=== PATIENT | female | born 1990 | race Caucasian/White ===

== ENCOUNTER → 2019-07-20 09:30 | Outpatient (BNVA) | payer MEDICAID, SELFPAY | PROVIDERS: Family Provider Obstetrics & Gynecology; Visit Provider Nurse Practitioner Women's Health | DX: Z34.90 Encounter for supervision of normal pregnancy, unspecified, unspecified trimester (principal) | CPT/HCPCS: 84315 ==

== ENCOUNTER → 2019-08-01 10:55 | Outpatient (BNVA) | payer MEDICAID, SELFPAY | PROVIDERS: Family Provider Obstetrics & Gynecology; Visit Provider Obstetrics & Gynecology | DX: Z01.89 Encounter for other specified special examinations (principal) | CPT/HCPCS: 84315 ==

== ENCOUNTER → 2019-08-15 09:00 | Outpatient (BNVA) | payer MEDICAID, SELFPAY | PROVIDERS: Family Provider Obstetrics & Gynecology; Visit Provider Obstetrics & Gynecology Female Pelvic Medicine and Reconstructive Surgery | DX: O16.3 Unspecified maternal hypertension, third trimester (principal) | CPT/HCPCS: 80053; 82570; 84156; 84315; 84550; 85025; 87081 ==

== ENCOUNTER → 2019-08-18 14:16 | Outpatient (BNVA) | payer MEDICAID, SELFPAY | PROVIDERS: Family Provider Obstetrics & Gynecology; Visit Provider Obstetrics & Gynecology | DX: Z01.89 Encounter for other specified special examinations (principal) | CPT/HCPCS: 84315 ==

== ENCOUNTER → 2019-08-22 09:30 | Outpatient (BNVA) | payer MEDICAID, SELFPAY | PROVIDERS: Family Provider Obstetrics & Gynecology; Visit Provider Obstetrics & Gynecology Female Pelvic Medicine and Reconstructive Surgery | DX: Z01.89 Encounter for other specified special examinations (principal) | CPT/HCPCS: 84315 ==

== ENCOUNTER → 2019-08-25 15:06 | Outpatient (BNVA) | payer MEDICAID, SELFPAY | PROVIDERS: Family Provider Obstetrics & Gynecology; Visit Provider Obstetrics & Gynecology Female Pelvic Medicine and Reconstructive Surgery | DX: O16.3 Unspecified maternal hypertension, third trimester (principal); Z3A.31 31 weeks gestation of pregnancy | CPT/HCPCS: 82570; 82575; 84156 ==

== ENCOUNTER → 2019-08-31 09:40 | Outpatient (BNVA) | payer MEDICAID, SELFPAY | PROVIDERS: Family Provider Obstetrics & Gynecology; Visit Provider Nurse Practitioner Women's Health | DX: Z34.93 Encounter for supervision of normal pregnancy, unspecified, third trimester (principal); Z36.9 Encounter for antenatal screening, unspecified; Z3A.36 36 weeks gestation of pregnancy | CPT/HCPCS: 76816; 84315 ==

== ENCOUNTER 2019-09-07 10:58 | Inpatient (IN) | payer MEDICAID, SELFPAY ==
[2019-09-07] VITALS (143 sets, daily range): BP systolic 0–194; BP diastolic 0–105; PULSE 80–146; TEMP 36.7–36.9; O2SAT 81–100; BMI 40.0
[2019-09-07 12:11] LABS: Basophils % 0.1 %; Eosinophils # 0.1 10^3/uL (0.0-0.8); Eosinophils % 0.5 %; Hematocrit 35.5 % (37.0-47.0); Hemoglobin 11.7 g/dL (11.5-15.3); Lymphocytes # 2.3 10^3/uL (0.8-4.8); Lymphocytes % 16.5 %; Mean Corpuscular Hemoglobin 26.8 pg (28.0-34.0); Mean Corpuscular Volume 81.2 fL (81-99); Mean Platelet Volume 9.9 fL (7.4-10.4); Monocytes # 0.5 10^3/uL (0.2-0.9); Monocytes % 3.5 %; Neutrophils % 78.9 %; Nucleated Red Blood Cells % 0 %; Platelet Count 349 10^3/cmm (130-400); Red Blood Count 4.37 10^6/uL (4.1-5.3); Red Cell Distribution Width 14.1 % (12.1-15.1); White Blood Count 13.9 10^3/uL (4.0-10.0)
[2019-09-07] MEDS: miSOPROStol 100 mcg tablet 25 MCG VAGINAL (12:14)
[2019-09-07] MEDS: lactated ringers 1,000 ML 999 ML IV ×2 (12:14→18:27)
[2019-09-07 12:29] LABS: Alanine Aminotransferase < 5 U/L (0-33); Albumin Level 3.5 g/dL (3.5-5.2); Alkaline Phosphatase 156 IU/L (35-105); Anion Gap 14.1 (5-19); Aspartate Amino Transferase 12 U/L (0-32); Blood Urea Nitrogen 6 mg/dL (6-20); Calcium 9.6 mg/dL (8.5-10.5); Carbon Dioxide 22 mmol/L (22-29); Chloride 101 mmol/L (98-107); Glomerular Filtration Rate 119.9 mL/min (90-130); Glucose 99 mg/dL (65-115); Potassium 4.1 mmol/L (3.5-5.1); Sodium 133 mmol/L (136-145); Total Bilirubin 0.3 mg/dL (0.15-1.2); Total Protein 7.5 g/dL (6.6-8.7)
[2019-09-07] MEDS: hyDROXYzine 25 mg Capsule 50 MG PO (13:44)
[2019-09-07 14:31] LABS: Bilirubin Urine 1+ (NEGATIVE); Blood Urine Neg (Negative); Glucose Urine UA Norm (Normal); Ketones Urine 1+ (Negative); Nitrate Urine Negative (Negative); Protein Urine Neg (Negative); Urine Appearance Hazy (CLEAR); Urine Color Dark Yellow (Yellow); Urobilinogen Urine 1 mg/dL (Negative); pH Urine 6 (5-7)
[2019-09-07 14:32] LABS: Bacteria Urine TRACE; Leukocyte Esterase Urine Negative (Negative); Mucus Urine 1+; Squamous Epithelial Cell Urine 0-4 (0-5); WBC Urine 0-4 /hpf (0-5)
[2019-09-07] MEDS: acetaminophen 325 mg Tablet 650 MG PO (15:17)
[2019-09-07] MEDS: labetalol 5 mg/mL SDV 20mL 10 MG IVP (15:18)
[2019-09-07 15:29] LABS: Urine Creatinine 227 mg/dL (28-217)
[2019-09-07 15:40] LABS: UPRO/UCREAT Ratio 0.11 mg/mg CR; Urine Protein Random 25 mg/dL
--- NOTE | 2019-09-07 18:01 | PM.OBGYPN ---
ADVANCED SOLUTIONS ARCHITECT Subjective Subjective: Interval history: This 4 para 3 was admitted at 39+[address] Maya, for induction of labor with a diagnosis of gestational hypertension. Patient has been followed closely in the outpatient setting for increased blood pressure in the 140s to 150s over 90s serial labs have been unremarkable for preeclampsia serially urine protein/creatinine ratios have been normal. Today in the office her cervix was described as 80% 3 cm vertex she was admitted for induction. Since arriving on labor and delivery she has received Hunter possible 25 mcg per vagina with minimal effect. Has had a category 1 tracing. She has had blood pressures in the 150s to 160s over 90s to low 100s and has been given labetalol 10 mg now with blood pressures 130s to 140s systolic she has also developed headache which was not relieved by Tylenol which was not present earlier and now has 3+ patellar reflexes which are changed from before. My concern at this time is that she may be developing cerebral edema even though she does not classically fit the preeclamptic profile have discussed with patient that my recommendation is is that she go on magnesium sulfate for seizure prophylaxis. We will start IV Pitocin augmentation and membranes have been ruptured clear fluid. Medications: Reviewed: Yes Medication Review Details: IV Pitocin augmentation Magnesium sulfate Labetalol 10 mg Labor: Station: -2 Amniotic Membrane Status: Ruptured (At 1800 hrs. clear fluid) Vitals/I&O/Wt Last Vital Signs Temp 98.1 F 09/07/19 12:24 Pulse 114 H 09/07/19 17:58 BP 149/65 09/07/19 17:58 Weight last 48 hrs Weight 102.512 kg Physical Exam Narrative: EXAM NARRATIVE: Alert and oriented no acute distress patient laying in bed Monitor category 1 irregular uterine contractions noted. Abdomen is soft nontender Cervix 80% 3 cm vertex -3/5. AROM clear fluid Pelvis is adequate Extremities no significant edema patella DTRs are 3 oh/4 with clonus (change from previous) Data : 09/07/19 11:55 09/07/19 11:55 A&P Assessment and plan (1) Preeclampsia: I am concerned that with a blood pressure approaching and going to severe range and without development of headache and hyperreflexia that she is developing cerebral edema and probable preeclampsia. This is been explained to patient. At this time I do recommend starting magnesium sulfate for seizure prophylaxis we will also start IV Pitocin for augmentation. Amniotomy performed fluid is clear. Status: Acute Code(s): O14.90 - Unspecified pre-eclampsia, unspecified trimester Attestations Medical Necessity Statement*: Term IUP preeclampsia Time Spent in Patient Care: 16 - 35 minutes 30 minutes spent in patient care greater than 50% spent [id number] counseling for development of preeclampsia or need for magnesium sulfate prophylaxis for seizures. Coding Level of Care Code Acute Machine Operations Supervisor for Chg Fwd History Expanded Problem Focused Exam Expanded Problem Focused Medical Decision Making Moderate Complexity Diagnoses Preeclampsia O14.90 Time Spent (min) 30 Comment Greater than 50% of time spent with counseling patient for need for seizure prophylaxis
[2019-09-07] MEDS: dextrose 5%-lactated ringers 1,000 ML 125 ML IV (18:18)
[2019-09-07] MEDS: magnesium sulfate premix 4 GM/100 ML PREMIX IV (18:34)
[2019-09-07] MEDS: magnesium sulfate premix 20 GM/500 ML BAG IV (19:09)
[2019-09-07] MEDS: lactated ringers 1,000 ML 125 ML IV (19:33)
--- NOTE | 2019-09-07 19:41 | ANES.PREANE2 ---
Pre-Anesthetic Assessment Pre-Anesthetic Assessment: Height/Weight: Height 1.6 m Weight 102.512 kg Temp Pulse BP Pulse Ox 98.1 F 116 H 169/86 98 09/07/19 12:24 09/07/19 19:38 09/07/19 19:38 09/07/19 19:36 Preop Diagnosis: labor pains Proposed Procedure: epidural Familial anesthetic complications: none Social: Social History: No alcohol and No tobacco Exam: Pre-Anes Outpt Exam: alert, oriented x 3, clear to auscultation bilaterally and regular rate & rhythm Airway: Submandibular: WNL Cervical ROM: WNL MP: 2 Dentition: Full History/ROS: No significant complaints Pulmonary: Pulmonary: None reported CV/HEM: CV/HEM: HTN (preeclampsia) : : None reported Hepatic: Hepatic: None reported GI: GI: None reported Metabolic: Metabolic: None reported Musc/skel: Musc/skel: None reported Neuropsych: Neuropsych: Anxiety Anesthetic Plan: ASA status: 2 Anesthesia: Regional (specify below) Other: epidural Risk of > 500 ml blood loss (7ml/kg in children): No Meds/Allergies Current Medications: Current Medications Generic Name Dose Route Start Last Admin Trade Name Freq PRN Reason Stop Dose Admin Acetaminophen 650 mg 09/07/19 11:27 09/07/19 15:17 Tylenol PO 650 mg Q6H PRN Administration Mild pain or temp > 100.4 Hydroxyzine Pamoat e 50 mg 09/07/19 11:27 09/07/19 13:44 Vistaril PO 50 mg QID PRN Administration sleep, agitation or itching Lactated Ringer's 1,000 mls @ 999 m ls/hr 09/07/19 11:27 09/07/19 13:05 Lactated Ringers IV Infused .Q1H1M PRN Infusion Per L&D Rescitati on Protocol Dextrose/Lactated Ringer's 1,000 mls @ 125 m ls/hr 09/07/19 17:30 09/07/19 18:30 Dextrose 5%-Lact ated Ringers IV 0 mls/hr .Q8H BEATRIS Infusion Magnesium Sulfate 20 gm in 500 mls @ 50 mls/hr 09/07/19 17:30 09/07/19 19:09 Magnesium Sulfat e Premix IV 50 mls/hr .Q10H BEATRIS Administration Lactated Ringer's 1,000 mls @ 125 m ls/hr 09/07/19 19:13 09/07/19 19:34 Lactated Ringers IV 75 mls/hr .Q8H PRN Infusion ANESTHESIA PFSH Anesthesia PFSH: Medical History (Updated 09/07/19 @ 18:05 by Jose Roberto Hernandez DO) Patient denies medical problems Denies diabetes, asthma, seizures, DVT/PE, thyroid problems, genital herpes, no hx of HSV for partner. PCP: None Surgical History (Updated 08/23/19 @ 14:48 by Kell Chase, FRANKIE) No history of previous surgery Family History (Updated 08/23/19 @ 14:51 by Kell Chase RN) Father Hypertension Son Thyroid disease Family/Other Cancer MATERNAL GREAT AUNT ---- BREAST CANCER Patient denies medical problems Denies breast, cervical, uterine, ovarian, colon cancer, DVT/PE. 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 Female Reproductive History: : 1 Data Anesthesia CBC & Chem 7: 09/07/19 11:55 09/07/19 11:55 Other Labs: Laboratory Results - last 48 hr 09/07/19 09/07/19 09/07/19 11:55 11:55 13:05 WBC 13.9 H RBC 4.37 Hgb 11.7 Hct 35.5 L MCV 81.2 MCH 26.8 L MCHC 33.0 RDW 14.1 Plt Count 349 MPV 9.9 Neut % (Auto) 78.9 Lymph % (Auto) 16.5 [place] % (Auto) 3.5 Eos % (Auto) 0.5 Baso % (Auto) 0.1 Neut # (Auto) 11.0 H Lymph # (Auto) 2.3 [place] # (Auto) 0.5 Eos # (Auto) 0.1 Baso # (Auto) 0.0 Nucleated RBC % (auto) 0 Nucleated RBCs # 0.0 Sodium 133 L Potassium 4.1 Chloride 101 Carbon Dioxide 22 Anion Gap 14.1 BUN 6 Creatinine 0.6 GFR Calculation 119.9 Glucose 99 Uric Acid 6.0 H Calcium 9.6 Total Bilirubin 0.3 AST 12 ALT < 5 Alkaline Phosphatase 156 H Total Protein 7.5 Albumin 3.5 Globulin 4.0 Urine Color Dark yellow Urine Appearance Hazy A Urine pH 6 Ur Specific [place] 1.020 Urine Protein Neg Urine Glucose (UA) Norm Urine Ketones 1+ H Urine Blood Neg Urine Nitrate Negative Urine Bilirubin 1+ H Urine Urobilinogen 1 H Ur Leukocyte Esterase Negative Urine RBC None Urine WBC 0-4 H Ur Squamous Epith Cells 0-4 H Urine Bacteria Trace Urine Mucus 1+ U Random Total Protein Urine Creatinine Protein/Creatinin Ratio 09/07/19 13:05 WBC RBC Hgb Hct MCV MCH MCHC RDW Plt Count MPV Neut % (Auto) Lymph % (Auto) [place] % (Auto) Eos % (Auto) Baso % (Auto) Neut # (Auto) Lymph # (Auto) [place] # (Auto) Eos # (Auto) Baso # (Auto) Nucleated RBC % (auto) Nucleated RBCs # Sodium Potassium Chloride Carbon Dioxide Anion Gap BUN Creatinine GFR Calculation Glucose Uric Acid Calcium Total Bilirubin AST ALT Alkaline Phosphatase Total Protein Albumin Globulin Urine Color Urine Appearance Urine pH Ur Specific [place] Urine Protein Urine Glucose (UA) Urine Ketones Urine Blood Urine Nitrate Urine Bilirubin Urine Urobilinogen Ur Leukocyte Esterase Urine RBC Urine WBC Ur Squamous Epith Cells Urine Bacteria Urine Mucus U Random Total Protein 25 Urine Creatinine 227 H Protein/Creatinin Ratio 0.11 Cardiac Studies: No Data to Display
--- NOTE | 2019-09-07 20:09 | P.ANES_ITS ---
Anesthesia Procedures Procedure/Date: 09/07/19 Epidural Procedure Narrative: Epidural complete, bolus given, epidural pump initiated with AUTO LEASING MANAGER education given, vitals taken using OBIX system and satisfactory throughout, patient admits to decreased pain, report of procedure to OB RN Epidural: Time Out Performed: Yes Consents Signed: Procedure Consent Consent: requested by attending/covering physician, from patient, risks and benefits reviewed and patient agrees to proceed Lumbar Level: L3-L4 Epidural position: sitting Epidural procedure: sterile prep of area, 1% lidocaine to numb the area (3mL), 18 g needle, negative for paresthesia passed, neg for paresthesia, test dose given, 1.5% xylocaine 1:200k epi (5mL), 0.2% Ropivacaine bolus ml (5mL), placed PCEA, no systemic response, sterile dressing applied, L.U.D. no apparent complications and 0.2% Ropiavacaine @ mls/hr (13mL/HR)
--- NOTE | 2019-09-07 20:45 | ANE.PACU2 ---
 Inpatient post-anesthesia follow up: Airway intact: Yes Vital signs: Temperature 98.1 F Pulse Rate 97 Respiratory Rate Blood Pressure 113/47 Pulse Oximetry 100 Oxygen Delivery Me thod Room Air Oxygen Flow Rate Fraction of Inspir ed Oxygen Hydration adequate: Yes Nausea and vomiting: No Pain level: 2 Mental status: Baseline Additional Comments: Post epidural placment patient had a decrease in Blood pressure, patient was turned on left side, given a 500mL bolus and given 200mcg neosynephrine x 2 doses, and epidural pump reduced to 11mL/HR. Blood pressure stabilized. patient still claims to have reduced pain with contractions
[2019-09-07] MEDS: lactated ringers 1,000 ML 75 ML IV (22:16)
[2019-09-07] MEDS: oxytocin 30 UNIT/500 ML BAG 600 UNIT IV (22:48)
--- NOTE | 2019-09-07 22:58 | PM.DELIVERY ---
 Delivery Note: Date of delivery: September 07, 2019 Pre-delivery diagnoses: Term . Preeclampsia Post-delivery diagnoses: Term delivered. Preeclampsia. Procedure: Spontaneous vaginal delivery Op report anesthesia: Epidural Delivering Physician: Mani Slaughter M.D. Estimated blood loss (mL): 500 Findings: Female , Apgars 9/9, weight 3550 g Pre-Delivery Course: The patient is a 29yo at 39 weeks EGA who has been receiving care from [facility]. The patient was admitted from clinic due to elevated blood pressures for induction. She received misoprostol for cervical ripening, and oxytocin. LMP: 12/04/2018 Estimated date of confinement: 09/10/2019 CC: Onset of labor at term. HPI: Received appropriate care. Daily vitamins since two months prior to conception. labs have all been normal, including negative for HIV. She was found to [positive] for Group B Strep from screening at 36 weeks. She has gained approximately [3] lbs throughout the . She denies a history of HTN during . Glucose tolerance screening for gestational diabetes was negative. Delivery: The patient was noted to be complete and pushing, so was placed in the dorsal lithotomy position, prepped and draped in the usual sterile fashion for a vaginal delivery. Pt. Noted to have epidural anesthesia. At time the patient delivered a Viable At 39 weeks Female weighing 3550 g with scores of 9 and 9 at one and five minutes, respectively. The vertex was delivered spontaneously over Intact perineum. The patient was asked to push and the head delivered spontaneously in the JEFFERSON position, over an intact perineum. A nuchal cord was checked and None noted. The anterior shoulder delivered easily and the posterior shoulder followed. The remainder of the infant was easily delivered and the oropharynx and nasopharynx was bulb suctioned. The was noted to have spontaneous cry and spontaneous movement of all four extremities. The cord was clamped x 2 and cut and noted to have 2 arteries and one vein. The was passed to the Mother's abdomen where Nursing personnel were in attendance. Cord blood sample was then obtained. The placenta delivered intact Spontaneously and the uterus Was explored. 20 units of Pitocin was placed in the IV bag to firm the uterus. Examination of the cervix and vaginal vault did not reveal any lacerations. A vaginal pack was then placed. Examination of the perineum showed No lacerations. The vaginal pack was then removed. The patient tolerated this procedure well, and recovered in L&D with her infant And transferred to the OB dougherty. All sponge and needle counts were correct. A&P Assessment and plan (1) Preeclampsia: Status: Acute Code(s): O14.90 - Unspecified pre-eclampsia, unspecified trimester Coding Level of Care Code Acute Index Clerk for [facility] Fwd Diagnoses Preeclampsia O14.90
[2019-09-08] VITALS (42 sets, daily range): BP systolic 0–154; BP diastolic 0–105; PULSE 65–108; RESP 16–27; TEMP 36.2–36.8; O2SAT 93–100
[2019-09-08 00:22] LABS: Magnesium Level (OB Only) 4.6 mg/dL (5.0-7.5)
[2019-09-08] MEDS: HYDROcodone-acetaminophen 5-325 mg Tablet PO ×2 (02:38→08:34)
[2019-09-08] MEDS: magnesium sulfate premix 20 GM/500 ML BAG IV (05:32)
[2019-09-08] MEDS: docusate sodium 100 mg Capsule PO (08:34)
[2019-09-08] MEDS: prenatal vitamin Capsule 1 CAP PO (08:34)
--- NOTE | 2019-09-08 10:31 | PC.NURSE ---
Spoke with Dr Davis about post tubal ligation and magnesium sulfate therapy. OK from Dr Davis for tubal with magnesium therapy. Called scheduling, pt put on the schedule for 09/08/19 @ 1700
[2019-09-08 11:13] LABS: Hemoglobin 10.4 g/dL (11.5-15.3); Mean Corpuscular HGB Conc 32.5 g/dL (30.0-36.0); Mean Corpuscular Hemoglobin 26.9 pg (28.0-34.0); Mean Corpuscular Volume 82.7 fL (81-99); Mean Platelet Volume 9.7 fL (7.4-10.4); Platelet Count 315 10^3/cmm (130-400); Red Blood Count 3.87 10^6/uL (4.1-5.3); Red Cell Distribution Width 14.1 % (12.1-15.1); White Blood Count 15.6 10^3/uL (4.0-10.0)
--- NOTE | 2019-09-08 15:32 | PC.NURSE ---
abdomen wiped with preop wipes, gown changed. IV patent.
--- NOTE | 2019-09-08 16:01 | PC.NURSE ---
pt off floor with OR staff for tubal ligation
--- NOTE | 2019-09-08 16:03 | ANES.PREANE2 ---
Pre-Anesthetic Assessment Pre-Anesthetic Assessment: Height/Weight: Height 1.6 m Weight 102.512 kg Temp Pulse Resp BP Pulse Ox 97.8 F 96 18 136/85 97 09/08/19 16:01 09/08/19 16:01 09/08/19 16:01 09/08/19 16:01 09/08/19 16:01 Preop Diagnosis: undesired fertility Proposed Procedure: Operation Date: 09/08/19 16:00 Proposed Procedures p Bilateral Tubal Ligation(Not Applicable) - Jose Roberto Hernandez DO Last intake: Intake Last Liquid Date 09/08/19 Last Liquid Time 14:30 Last Solid Date 09/07/19 Last Solid Time 08:00 Exam: Pre-Anes Outpt Exam: alert, oriented x 3, clear to auscultation bilaterally and regular rate & rhythm Airway: Submandibular: WNL Cervical ROM: WNL MP: 1 CV/HEM: Comments: started Mg in labor, proteinuria Anesthetic Plan: ASA status: 2 Anesthesia: General Meds/Allergies Current Medications: Current Medications Generic Name Dose Route Start Last Admin Trade Name Freq PRN Reason Stop Dose Admin Acetaminophen 650 mg 09/07/19 11:27 09/07/19 15:17 Tylenol PO 650 mg Q6H PRN Administration Mild pain or temp > 100.4 Hydrocodone Bitart /Acetaminophen 1 - 2 tab 09/07/19 22:57 09/08/19 08:34 [place] 5-325 Mg PO 1 tab Q6H PRN Administration MODERATE TO SEVER E PAIN Docusate Sodium 100 mg 09/08/19 09:00 09/08/19 08:34 Colace PO 100 mg BID BEATRIS Administration Hydroxyzine Pamoat e 50 mg 09/07/19 11:27 09/07/19 13:44 Vistaril PO 50 mg QID PRN Administration sleep, agitation or itching Oxytocin 30 unit in 500 ml s @ 600 mls/hr 09/07/19 11:27 09/07/19 23:15 Pitocin IV 60 mls/hr .Q50M PRN Titration After delivery of Protocol Lactated Ringer's 1,000 mls @ 999 m ls/hr 09/07/19 11:27 09/07/19 13:05 Lactated Ringers IV Infused .Q1H1M PRN Infusion Per L&D Rescitati on Protocol Ropivacaine 200 mg in 100 mls @ 6 mls/hr 09/07/19 11:45 09/07/19 22:50 Naropin Premix EPIDURAL Infused .[id number] BEATRIS Infusion Dextrose/Lactated Ringer's 1,000 mls @ 125 m ls/hr 09/07/19 17:30 09/08/19 12:52 Dextrose 5%-Lact ated Ringers IV 75 mls/hr .Q8H BEATRIS Infusion Magnesium Sulfate 20 gm in 500 mls @ 50 mls/hr 09/07/19 17:30 09/08/19 12:52 Magnesium Sulfat e Premix IV 50 mls/hr .Q10H BEATRIS Infusion Lactated Ringer's 1,000 mls @ 125 m ls/hr 09/07/19 19:13 09/08/19 12:53 Lactated Ringers IV Infused .Q8H PRN Infusion ANESTHESIA Ibuprofen 800 mg 09/08/19 09:00 09/08/19 08:34 Motrin PO 800 mg TID BEATRIS Administration Additional Medication Information: IV Pitocin augmentation Magnesium sulfate Labetalol 10 mg PFSH Anesthesia PFSH: Medical History (Updated 09/07/19 @ 18:05 by Jose Roberto Hernandez DO) Patient denies medical problems Denies diabetes, asthma, seizures, DVT/PE, thyroid problems, genital herpes, no hx of HSV for partner. PCP: None Surgical History (Updated 08/23/19 @ 14:48 by Kell Chase RN) No history of previous surgery Family History (Updated 08/23/19 @ 14:51 by Kell Chase RN) Father Hypertension Son Thyroid disease Family/Other Cancer MATERNAL GREAT AUNT ---- BREAST CANCER Patient denies medical problems Denies breast, cervical, uterine, ovarian, colon cancer, DVT/PE. 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 Female Reproductive History: : 1 Data Anesthesia CBC & Chem 7: 09/08/19 11:01 09/07/19 11:55 Other Labs: Laboratory Results - last 48 hr 09/07/19 09/07/19 09/07/19 11:55 11:55 11:55 WBC 13.9 H RBC 4.37 Hgb 11.7 Hct 35.5 L MCV 81.2 MCH 26.8 L MCHC 33.0 RDW 14.1 Plt Count 349 MPV 9.9 Neut % (Auto) 78.9 Lymph % (Auto) 16.5 [place] % (Auto) 3.5 Eos % (Auto) 0.5 Baso % (Auto) 0.1 Neut # (Auto) 11.0 H Lymph # (Auto) 2.3 [place] # (Auto) 0.5 Eos # (Auto) 0.1 Baso # (Auto) 0.0 Nucleated RBC % (auto) 0 Nucleated RBCs # 0.0 Sodium 133 L Potassium 4.1 Chloride 101 Carbon Dioxide 22 Anion Gap 14.1 BUN 6 Creatinine 0.6 GFR Calculation 119.9 Glucose 99 Uric Acid 6.0 H Calcium 9.6 Magnesium Total Bilirubin 0.3 AST 12 ALT < 5 Alkaline Phosphatase 156 H Total Protein 7.5 Albumin 3.5 Globulin 4.0 Urine Color Urine Appearance Urine pH Ur Specific [place] Urine Protein Urine Glucose (UA) Urine Ketones Urine Blood Urine Nitrate Urine Bilirubin Urine Urobilinogen Ur Leukocyte Esterase Urine RBC Urine WBC Ur Squamous Epith Cells Urine Bacteria Urine Mucus U Random Total Protein Urine Creatinine Protein/Creatinin Ratio Blood Type O Negative Rho(D) Type Negaive Antibody Screen Negative Screen 09/07/19 09/07/19 09/07/19 13:05 13:05 23:38 WBC RBC Hgb Hct MCV MCH MCHC RDW Plt Count MPV Neut % (Auto) Lymph % (Auto) [place] % (Auto) Eos % (Auto) Baso % (Auto) Neut # (Auto) Lymph # (Auto) [place] # (Auto) Eos # (Auto) Baso # (Auto) Nucleated RBC % (auto) Nucleated RBCs # Sodium Potassium Chloride Carbon Dioxide Anion Gap BUN Creatinine GFR Calculation Glucose Uric Acid Calcium Magnesium 4.6 L* Total Bilirubin AST ALT Alkaline Phosphatase Total Protein Albumin Globulin Urine Color Dark yellow Urine Appearance Hazy A Urine pH 6 Ur Specific [place] 1.020 Urine Protein Neg Urine Glucose (UA) Norm Urine Ketones 1+ H Urine Blood Neg Urine Nitrate Negative Urine Bilirubin 1+ H Urine Urobilinogen 1 H Ur Leukocyte Esterase Negative Urine RBC None Urine WBC 0-4 H Ur Squamous Epith Cells 0-4 H Urine Bacteria Trace Urine Mucus 1+ U Random Total Protein 25 Urine Creatinine 227 H Protein/Creatinin Ratio 0.11 Blood Type Rho(D) Type Antibody Screen Screen 09/08/19 09/08/19 11:01 11:01 WBC 15.6 H RBC 3.87 L Hgb 10.4 L Hct 32.0 L MCV 82.7 MCH 26.9 L MCHC 32.5 RDW 14.1 Plt Count 315 MPV 9.7 Neut % (Auto) Lymph % (Auto) [place] % (Auto) Eos % (Auto) Baso % (Auto) Neut # (Auto) Lymph # (Auto) [place] # (Auto) Eos # (Auto) Baso # (Auto) Nucleated RBC % (auto) Nucleated RBCs # Sodium Potassium Chloride Carbon Dioxide Anion Gap BUN Creatinine GFR Calculation Glucose Uric Acid Calcium Magnesium Total Bilirubin AST ALT Alkaline Phosphatase Total Protein Albumin Globulin Urine Color Urine Appearance Urine pH Ur Specific [place] Urine Protein Urine Glucose (UA) Urine Ketones Urine Blood Urine Nitrate Urine Bilirubin Urine Urobilinogen Ur Leukocyte Esterase Urine RBC Urine WBC Ur Squamous Epith Cells Urine Bacteria Urine Mucus U Random Total Protein Urine Creatinine Protein/Creatinin Ratio Blood Type Rho(D) Type Antibody Screen Screen Negative Cardiac Studies: No Data to Display
[2019-09-08] MEDS: sodium chloride 0.9% 1,000 ML 30 ML IV (16:21)
--- NOTE | 2019-09-08 16:39 | W.PM.OPSUD ---
Surgery/Procedure H&P Update DATE OF PROCEDURE: September 08, 2019 DATE H&P PERFORMED: 09/07/19 PREOP DIAGNOSIS: undesired fertility PLANNED PROCEDURE: Operation Date: 09/08/19 16:00 Proposed Procedures p Bilateral Tubal Ligation(Not Applicable) - Jose Roberto Hernandez DO
--- NOTE | 2019-09-08 17:35 | SUR.OPER ---
1735 both tubes removed during ppbtl, and then converted to exploratory laparotomy
--- NOTE | 2019-09-08 18:51 | SUR.PHASEI ---
1832 PATIENT TO PACU AT THIS TIME. RR EVEN AND UNLABORED. RESPONDS TO VERBAL STIMULI, DROWSY. DRESSING TO ABDOMEN, CDI.
--- NOTE | 2019-09-08 19:04 | PM.OP ---
Operative Report Date of procedure: September 08, 2019 Pre-op Diagnosis: undesired fertility Post-op Diagnosis: secondary infertility intraoperative hemorrhage Post-op Findings: uterus at umbilicus. left tube and ovary normal, right tube/ovary with tuboovarian adhesions. bleeding from right side necessitated removal right ovary and remaining tube. Procedure Done: tubal ligation, [place] modification Hubert Laparotomy right salpingo-oophorectomy and control of intraoperative hemorrhage Specimens removed/disposition: Segments of fallopian tubes right ovary Pathology: Bilateral tubes, segments and right ovary Surgeon: Jose Roberto Hernadnez Javascript Ui Developer: Troy Pedroza Anesthesia: General Estimated blood loss (mL): 500 IV fluids (mL): 1,800 Urine output: urine not measured Complications: Bleeding from right ovarian vessels and right uterine cornu Findings: At the umbilicus. Left tube and ovary unremarkable well identified right tube not well identified and right ovary adhesed to right uterine cornu and right tube bleeding from infundibulopelvic vessels on the right and right uterine cornu necessitating removal of remaining right tube and ovary as well as ligation of ascending uterine vessels. Condition: stable Disposition: PACU Brief History: 29-year-old lady who is approximately 18 hours desires permanent sterilization with has plans to go the operating room for tubal ligation. She has been counseled understands the risk of surgery which includes but not limited to infection bleeding damage to bowel bladder nerves vessels other organs possibility of bleeding possibility of future further surgery. Patient understands a tubal is permanent no guarantee of success fails 1 and 300 times risk of ectopic and cannot be reversed Procedure: After appropriate counseling and discussion of options patient elected to undergo tubal ligation . She was taken the operating room and [facility]. In the operating room underwent general tracheal anesthesia placed supine on the operating table patient had emptied her bladder just prior to coming back to the operating room so Goodwin catheter was not placed. With the patient supine on the operating table anesthesia was administered. Patient abdomen was then prepped and draped in usual fashion. Timeout was performed. At this point a curvilinear incision approximately 2-1/2 cm was made in the infraumbilical fold and carried down to the subcutaneous tissue the fascia was entered intra-abdominal location verified. Attention was first directed to the patient's right side the table was tilted to the left the help of visualize the right fallopian tube. Initially I grabbed it I thought was a fallopian tube but could not trace it out the fimbriated and I think it was round ligament then went inserting a little bit higher we able to find another tubular structure which I was able to follow out to the fimbriated end verified his fallopian tube. Is noted that this tube was in close approximation to the right ovary right ovary was adhesed to the uterine cornu. And the tube was fairly difficult to pull up and to get to traced to the fimbriated end and enough there has been some adhesions out to or not. With proper visualization a hole was made in the mesosalpinx in an avascular portion and approximately 4 cm of tube was ligated with 0 catgut suture. A knuckle of tube was then ligated specimen was excised and handed off. Inspection at this time showed no bleeding. The tube was then allowed to retract and attention was directed to the left side the patient was placed tilted to her right left fallopian tube was easily identified and brought up into the incision to trace out to the fimbriated end very nicely knuckle of tube was then identified grasped elevated and then loop was then tied with 0 plain and then the proximal distal ends of the loop were likewise tied the specimen was excised and handed off the cut ends of the tubes were lightly cauterized. This tube was then allowed to retract into the abdomen at this time inspection of the patient's right side showed what was felt to be moderate amount of blood in the right gutter. This area was then suctioned dry and immediately more blood returned. Incision was made to open the patient's abdomen soon approximately 10 cm incision was made in the midline below the umbilicus carried down to the fascia the fascia was then incised and extended extended superiorly and inferiorly. The uterine fundus was then grasped and uterus was brought up through the incision. Immediately on the right side it was noted that there was bleeding from the uterine cornu between the proximal end of the tube and the utero-ovarian suspensory ligament there also is bleeding along the infundibulopelvic vessels on the right. Due to the adhesions and the amount of bleeding with the ovary and tube decision was made to ligate the infundibulopelvic vessels on the right and remove the right tube and ovary. When doing the peritoneum was secured on the right the ovarian vessels were then clamped cut and suture-ligated without difficulty. The remaining pedicle consisting of the base of the remaining fallopian tube and the utero-ovarian ligaments were then clamped and doubly ligated. Specimen was excised and handed off. There did remain some bleeding from the cornu from some a sending vessels. Svlntw-[id number] was in place to control this bleeding. For further inspection at this time also showed some bleeding further down the broad ligament from some a sending uterine vessels these were likewise suture ligated. This then controlled the bleeding on the right very nicely. Area was copiously irrigated and inspected for several minutes with no further bleeding. Uterus was then replaced and attention was then redirected to the left side there was no bleeding on the left side. At this point time we once again reinspected the right side there was no further bleeding. Then closed the incision. The fascia was closed with a running 0 Vicryl suture. The umbilical stalk was resutured to the fascia with 0 Vicryl. Subcutaneous tissue was then brought together with 2-0 Vicryl the skin was then closed with ramos in the vertical infraumbilical part of the incision and subcutaneously in the umbilicus with good cosmetic effect. The patient was then awakened expiratory transfer from the operative table to [facility] good condition. She will go to the floor tonight with plan discharge home in the morning. End of this dictation thank you very much
--- NOTE | 2019-09-08 19:21 | SUR.PHASEI ---
1856 PATIENT TO OB AT THIS TIME. RR EVEN AND UNLABORED. PAIN 3/10, TOLERATING ICE CHIPS. DRESSING NOTED TO BE SATURATED WHEN ARRIVING TO OB. DR. GARCES AT BEDSIDE. DRESSING REINFORCED WITH PRESSURE DRESSING.
[2019-09-08] MEDS: oxyCODONE 5 mg IR Tab/Cap PO (19:45)
--- NOTE | 2019-09-08 20:03 | PC.NURSE ---
Patient to floor at 1900, Patient ambulated to bed from [facility], tolerated activity fair. Inspection of dressing shown moderate amount of bloody drainage to dressing. This nurse went to implementation specialist room to notify Dr. Hernandez. Dr. Hernandez to bedside immediately. This nurse observed Dr. Hernandez applying pressure to bleeding area of incision. New dressing applied. Will continue to monitor throughout shift for any further excessive bleeding. DON DAVID
--- NOTE | 2019-09-08 20:10 | PC.NURSE ---
09/08/20191939; Orders received to place regular diet from Dr. Hernandez. DON RN
--- NOTE | 2019-09-08 20:14 | PC.NURSE ---
Patient off floor per report.
--- NOTE | 2019-09-08 20:14 | PC.NURSE ---
Patient off floor per report. DON RN
[2019-09-08 21:25] LABS: Basophils # 0.1 10^3/uL (0.0-0.1); Basophils % 0.2 %; Hematocrit 29.2 % (37.0-47.0); Hemoglobin 9.3 g/dL (11.5-15.3); Lymphocytes # 1.3 10^3/uL (0.8-4.8); Lymphocytes % 6.2 %; Mean Corpuscular HGB Conc 31.8 g/dL (30.0-36.0); Mean Corpuscular Hemoglobin 27.7 pg (28.0-34.0); Mean Corpuscular Volume 86.9 fL (81-99); Mean Platelet Volume 9.8 fL (7.4-10.4); Monocytes # 0.4 10^3/uL (0.2-0.9); Monocytes % 1.7 %; Neutrophils # 19.2 10^3/uL (1.8-7.7); Neutrophils % 91.3 %; Nucleated Red Blood Cells % 0 %; Platelet Count 329 10^3/cmm (130-400); Red Blood Count 3.36 10^6/uL (4.1-5.3); Red Cell Distribution Width 14.5 % (12.1-15.1)
[2019-09-08] MEDS: lactated ringers 1,000 ML 999 ML IV (21:42)
[2019-09-08] MEDS: metoclopramide 5 mg/mL SDV 2 mL 10 MG IVP (21:47)
[2019-09-08] MEDS: famotidine 20 mg/2 mL INJ IVP (21:47)
[2019-09-08] MEDS: citric acid-sodium citrate 30 mL UDC PO (21:48)
--- NOTE | 2019-09-08 23:29 | PM.OP ---
Operative Report Date of procedure: September 08, 2019 Pre-op Diagnosis: postoperative bleeding Post-op diagnosis: same Post-op Findings: uterus boggy, moderate amount serosanginous fluid (dark) in abdomen mild oozing at right cornu left pedicles with large vwins? oozing, both areas ligated floseal applied bilaterally Procedure Done: exploratory laparotomy ligation of uterine vessels Specimens removed/disposition: none Pathology: none sent Surgeon: Jose Roberto Hernandez Anesthesia: General Estimated blood loss (mL): 20 IV fluids (mL): 1,000 Urine output (mL): 500 Complications: none Findings: see above Condition: stable Disposition: PACU Brief History: This young lady earlier today underwent tubal complicated by bleeding from right uterine cornu resulting in RSO to control. Bleeding was significant with estimated blood loss of 500 cc. Did well in PACU however with movement patient expressed extremely large amount of dark serosanguineous fluid from the incision she continued to express a copious amount of fluid from the incision while on the floor causing me to be concerned about perhaps it was some bleeding into her abdominal. Discussed situation with patient and spouse with recommendation to undergo repeat laparotomy to explore the operative sites consent was given. Procedure: Patient was taken to the operating room [facility] did receive Ancef 2 g prophylaxis. In the operating room was placed supine on the operating table underwent general tracheal anesthesia. Goodwin catheter was in place. Abdomen was prepped and draped in usual manner timeout was performed. Previously placed ramos and subcutaneous sutures around the umbilicus were removed the incision was opened down to the fascia upon entering the subcutaneous tissue there was no active bleeding now was any further expected expression of fluid the fascia was opened and the incision extended slightly and Bharathi retractor placed. With the Bharathi we had excellent visualization though upon entering the abdominal cavity there was a moderate amount of dark serosanguineous fluid this was aspirated. Upon inspecting the right operative site there was a small amount of oozing from the right cornu and the uterus was noted to be quite boggy upon squeezing the upper uterine fundus we did cause bleeding from the right corner this area was oversewn with [id number] sutures of 0 Vicryl with excellent control. The deep pedicle on the right was clear. Attention was directed to the left side there was one area that had a's very small amount of oozing on the left this was oversewed also with 0 Vicryl in a large vein leading to the uterine fundus was ligated. The operative sites were irrigated and inspected for several minutes with no active bleeding. Uterus was replaced in the abdomen once again inspected over several minutes with no bleeding FloSeal was applied to both operative sites. The fascia was then closed with a running looped #1 PDS suture. The subcuticular tissue was closed and the infraumbilical midline incision closed with ramos after injecting with local anesthesia. The semilunar umbilical incision was closed subcuticularly. Dry sterile dressing was applied patient was then transferred from the operating table to the [facility] and taken recovery in good condition from there she will go back to the floor. There were no complications Sponge needle instrument count was correct.
--- NOTE | 2019-09-08 23:41 | SUR.PHASEI ---
9082 PATIENT TO PACU AT THIS TIME FROM OR. RR EVEN AND UNLABORED. PLACED ON SIMPLE MASK AT 8L, SPO2 97%. CAREY CATH IN PLACE, DRAINING CLEAR, YELLOW URINE. DRESSING INTACT TO ABDOMEN.
--- NOTE | 2019-09-08 23:47 | ANE.PACU2 ---
 Inpatient post-anesthesia follow up: Airway intact: Yes Vital signs: Temperature 97.7 F Pulse Rate 85 Respiratory Rate 20 Blood Pressure 126/79 Pulse Oximetry 99 Oxygen Delivery Me thod Simple Mask Oxygen Flow Rate 8 Fraction of Inspir ed Oxygen Hydration adequate: Yes Nausea and vomiting: No Pain level: 3 Mental status: Baseline
[2019-09-09] VITALS (14 sets, daily range): BP systolic 117–150; BP diastolic 72–103; PULSE 83–114; RESP 14–28; TEMP 36.3–36.9; O2SAT 93–98
--- NOTE | 2019-09-09 00:13 | SUR.PHASEI ---
0004 PATIENT TO OB AT THIS TIME VIA BED. RR EVEN AND UNLABORED, DROWSY. DRESSING, CDI TO ABDOMEN.
--- NOTE | 2019-09-09 01:30 | PC.NURSE ---
1936 09/08/[address] Hernandez continue fluids from OR of pitocin 20 mu with NS at 125ml/hr throughout the night. Order read back and verified with Dr. Hernandez. Pharmacy to mix bag of fluids and send up. DON DAVID
--- NOTE | 2019-09-09 01:35 | PC.NURSE ---
0005 09/09/2019 PATIENT TO FLOOR FROM PACU. REPORT GIVEN TO THIS NURSE FROM BANDAR DAVID. DON RN
[2019-09-09] MEDS: HYDROcodone-acetaminophen 5-325 mg Tablet PO ×4 (03:57→18:19)
[2019-09-09] MEDS: ketorolac 30 mg/mL INJ IVP ×3 (05:32→17:09)
--- NOTE | 2019-09-09 06:36 | PC.NURSE ---
PATIENT UP TO CHAIR WITH 1 ASSIST. PATIENT TOLERATES ACTIVITY FAIR. AR RN
[2019-09-09 07:49] LABS: Hematocrit 27.6 % (37.0-47.0); Hemoglobin 8.5 g/dL (11.5-15.3); Mean Corpuscular HGB Conc 30.8 g/dL (30.0-36.0); Mean Corpuscular Hemoglobin 26.8 pg (28.0-34.0); Mean Corpuscular Volume 87.1 fL (81-99); Mean Platelet Volume 9.6 fL (7.4-10.4); Platelet Count 332 10^3/cmm (130-400); Red Blood Count 3.17 10^6/uL (4.1-5.3); Red Cell Distribution Width 14.6 % (12.1-15.1); White Blood Count 13.4 10^3/uL (4.0-10.0)
--- NOTE | 2019-09-09 08:06 | PC.NURSE ---
pt up in room. mirna and catheter care performed. mesh underwear and pad put on. pt remains up walking in room. denies feeling lightheaded, only sore.
[2019-09-09] MEDS: prenatal vitamin Capsule 1 CAP PO (08:52)
[2019-09-09] MEDS: ferrous sulfate EC 325 mg Tablet PO ×2 (08:52→17:09)
[2019-09-09] MEDS: docusate sodium 100 mg Capsule PO ×2 (08:52→17:09)
--- NOTE | 2019-09-09 09:55 | ANE.PACU2 ---
 Inpatient post-anesthesia follow up: Airway intact: Yes Vital signs: Temperature 98.2 F Pulse Rate 102 Respiratory Rate 17 Blood Pressure 120/83 Pulse Oximetry 98 Oxygen Delivery Me thod Room Air Oxygen Flow Rate 3 Fraction of Inspir ed Oxygen Hydration adequate: Yes Nausea and vomiting: No Pain level: 3 Mental status: Baseline Additional Comments: No headache, no back pain, up and walking, no sign of infection at epidural site
[2019-09-09 11:23] LABS: Hematocrit 26.1 % (37.0-47.0); Hemoglobin 8.2 g/dL (11.5-15.3); Mean Corpuscular HGB Conc 31.4 g/dL (30.0-36.0); Mean Corpuscular Hemoglobin 27.9 pg (28.0-34.0); Mean Corpuscular Volume 88.8 fL (81-99); Mean Platelet Volume 9.5 fL (7.4-10.4); Platelet Count 304 10^3/cmm (130-400); Red Blood Count 2.94 10^6/uL (4.1-5.3); Red Cell Distribution Width 14.7 % (12.1-15.1); White Blood Count 14.8 10^3/uL (4.0-10.0)
--- NOTE | 2019-09-09 12:04 | P.PN_ITS ---
SLEEP MEDICINE PHYSICIAN Subjective Subjective: Interval history: POD 1 Patient is now status post tubal with laparotomy and control of bleeding. This was then followed approximately 3 to 4 hours later by return to the OR laparotomy for evaluation for bleeding. She is doing well at this time is awake has been up still has Goodwin in place but desires to have it removed she is tolerating p.o. and has reasonable pain control. Hemoglobin today is 8. No obvious complaint Labor: Station: -1 Amniotic Membrane Status: Ruptured (At 1800 hrs. clear fluid) Monitor Mode: External Contraction Pattern: Regular Status: Category ll Vitals/I&O/Wt Last Vital Signs Temp 98.1 F 09/09/19 10:20 Pulse 101 H 09/09/19 10:20 Resp 17 09/09/19 10:20 BP 143/89 09/09/19 10:20 Pulse Ox 98 09/09/19 07:10 09/08/19 09/09/19 09/09/19 22:59 06:59 14:59 Intake Total 3083.334 / 4689.167 975 / 5664.167 400 / 400 Output Total 900 / 3150 1805 / 4955 500 / 500 Balance 2183.334 / 1539.167 -830 / 709.167 -100 / -100 Weight last 48 hrs Weight 102.512 kg Physical Exam Narrative: EXAM NARRATIVE: Vital signs reviewed, stable Alert and oriented no acute distress laying in bed HEENT grossly normal Lungs clear to auscultation Heart regular sinus rhythm Abdomen good bowel sounds soft appropriately tender dressing is dry Extremities grossly intact no calf tenderness sequentials on Urinary Catheter Management^: Goodwin Latex Free: Cath Placed During This Visit: yes, but has since been removed by the nurse Reason for Continuing Indwelling Catheter: Decision to DC Catheter Urinary Catheter Date of Insertion: 09/08/19 Urinary Catheter Time of Insertion: 21:00 Date Urinary Catheter Removed: 09/09/19 Time Urinary Catheter Discontinued: 10:50 Data : 09/09/19 11:02 09/07/19 11:55 A&P Additional A&P Information Postoperative day 1, doing well Anemia, postoperative secondary acute blood loss, stable We will continue in-house care to stay discharge home postoperative day 2. Advance care Attestations Medical Necessity Statement*: Postop Coding Level of Care Code Acute Banquet Attendant for Chg Fwd Medical Decision Making Moderate Complexity Time Spent (min) 15 Comment Greater than 50% of visit spent in counseling discussion with patient and spouse surgery and plan of care
--- NOTE | 2019-09-09 14:08 | PC.NURSE ---
when pt was up to bathroom to void, passed a walnut sized clot. fundus firm, small bleeding.
--- NOTE | 2019-09-09 18:06 | PC.NURSE ---
pt up to shower. iv site and abdominal dressing covered with plastic and foam tape. nurse remained in room. pt denied feeling dizzy or light headed. pt showered and dressed independently.
[2019-09-10] VITALS (16 sets, daily range): BP systolic 122–145; BP diastolic 73–99; PULSE 102–150; RESP 15–20; TEMP 36.5–37; O2SAT 95–99
[2019-09-10] MEDS: HYDROcodone-acetaminophen 5-325 mg Tablet PO (03:05)
--- NOTE | 2019-09-10 05:39 | PC.NURSE ---
hydrocodone 5-325 administered at 0305 was reassessed at 0330. patient stated that pain had decreased to a 3
[2019-09-10 05:49] LABS: Basophils % 0.3 %; Eosinophils # 0.3 10^3/uL (0.0-0.8); Eosinophils % 2.2 %; Hematocrit 22.3 % (37.0-47.0); Hemoglobin 6.9 g/dL (11.5-15.3); Lymphocytes # 2.3 10^3/uL (0.8-4.8); Lymphocytes % 20.3 %; Mean Corpuscular HGB Conc 30.9 g/dL (30.0-36.0); Mean Corpuscular Hemoglobin 27.1 pg (28.0-34.0); Mean Corpuscular Volume 87.5 fL (81-99); Monocytes # 0.6 10^3/uL (0.2-0.9); Monocytes % 5.6 %; Neutrophils % 71.2 %; Nucleated Red Blood Cells % 0 %; Platelet Count 273 10^3/cmm (130-400); Red Blood Count 2.55 10^6/uL (4.1-5.3); Red Cell Distribution Width 14.8 % (12.1-15.1); White Blood Count 11.2 10^3/uL (4.0-10.0)
[2019-09-10] MEDS: prenatal vitamin Capsule 1 CAP PO (07:58)
[2019-09-10] MEDS: docusate sodium 100 mg Capsule PO ×2 (07:58→17:42)
[2019-09-10] MEDS: ferrous sulfate EC 325 mg Tablet PO ×2 (07:58→17:42)
--- NOTE | 2019-09-10 12:17 | P.DS_ITS ---
Discharge Providers MANAGER PROVIDER RELATIONS Date of Admission: 09/07/19 10:58 Date of Discharge: 09/11/19 Attending Provider at Admission: Jose Roberto Hernandez DO Attending Provider at Discharge: Anel Maya MD Diagnoses at Discharge Other Information Additional DC diagnoses/information: Status post vaginal delivery on 09/07/2019 Status post tubal ligation and RSO on 09/08/2019 with reoperation secondary to bleeding Acute anemia secondary to blood loss Gestational hypertension progressing to preeclampsia status post 24 hours of magnesium sulfate Anxiety controlled on medication Obesity with a BMI of 40 Rh- status Reason for Visit Reason for Visit: Reason For Visit: Induction Hospital Course Hospital Course: Ms. Linn is a 29-year-old 4 para 3-0-0-3 at 39+ weeks gestation who underwent scheduled induction of labor for gestational hypertension at full-term. During the course of her induction she became preeclamptic and was placed on magnesium sulfate. She delivered on 09/07/2019 and underwent an uncomplicated vaginal delivery by Dr. Slaughter-please see his notes for labor course and labor and delivery. She was placed on magnesium sulfate for 24 hours and did well during this time. She underwent a tubal ligation and she desired permanent sterilization-this was performed by Dr. Hernandez on 09/08/2019 at 5 PM. This was complicated by adhesions and bleeding and she underwent a mini laparotomy with right salpingo-oophorectomy to control bleeding. During her postoperative course she had copious serosanguineous drainage and as a result required reopening and repeat surgery performed by Dr. Hernandez at which point bleeding was controlled. Please refer to both his operative report for details of surgery. On postoperative day 1 she did well and had no problems. Pain was controlled with p.o. pain medication. Incision was clean dry and intact. Vital signs were stable other than mild tachycardia. Hemoglobin dropped down from 9.3 after delivery to 8.4 after surgery. She continued to cesar well with her daughter and breast-feed without difficulty. Denies any depressive symptoms. On postoperative day 2 she continued to do well and pain was much better managed with p.o. hydrocodone and ibuprofen. She was ambulating well and denied nausea, vomiting, fever, chills. She denied any preeclamptic symptoms. Blood pressure remained largely within normal limits with occasional mild elevations. She denied any symptoms of anemia and orthostatic vitals were within normal limits. Hemoglobin on postoperative day 2 had dropped down to 6.9. Blood transfusion was offered however patient declined as she was worried about the possible complications. She continued to do well voiding freely. Later in the day she became more tachycardic with heart rate in the 120s to 130s and after counseling again patient accepted a blood transfusion and she only wanted 1 unit instead of 2 units and as a result was transfused 1 unit of PRBC the evening of 09/10/2019 which he tolerated without any problems. Following this vital signs improved and tachycardia improved with a heart rate of low 100s. She denied any other anemic symptoms. She did well for the rest of her hospitalization and was discharged home on postoperative day #3, day #4 in a stable condition. Plan is for her to follow-up in 1 week for staple removal and blood pressure check and then routine postoperative and visits. Emergency room precautions were reviewed with her in great detail and she understands that if there is any concern she needs to come in immediately. Physical Exam Narrative: EXAM NARRATIVE: Gen.: No acute distress Heart: S1-S2 heard, regular rate and rhythm Lungs: Clear to auscultation bilaterally Abdomen: Soft, fundus firm below umbilicus, tenderness around incision. Incision: Clean dry and intact with ramos and bruising Legs: No calf tenderness, +1 bilateral pitting pedal edema. Urinary Catheter Management^: Goodwin Latex Free: Cath Placed During This Visit: yes, but has since been removed by the nurse Reason for Continuing Indwelling Catheter: Decision to DC Catheter Urinary Catheter Date of Insertion: 09/08/19 Urinary Catheter Time of Insertion: 21:00 Date Urinary Catheter Removed: 09/09/19 Time Urinary Catheter Discontinued: 10:50 Discharge Data Data Completed and Pending: Pending at discharge Category Date Time Status Complete Crossmat ch Routine Lab 09/07/19 11:55 Results PRBC [Leukocyte R educed RBC] Routin e Lab 09/08/19 21:19 Results Retype for XM Rou arnol Lab 09/07/19 11:55 Results Rho D Immune Glob ulin Routine Lab 09/07/19 11:55 Results Type and Screen R outine Lab 09/07/19 11:55 Results Pathology: Surgic al [PTH] Routine Pth 09/09/19 08:30 Received Labs from last 24 hours Laboratory Tests 09/09/19 09/09/19 09/10/19 07:40 11:02 04:02 WBC 13.4 H 11.2 H Hgb 8.5 L 8.2 L 6.9 L Plt Count 332 304 273 Laboratory Tests 09/11/19 04:20 WBC 11.3 H Hgb 7.4 L Plt Count 305 09/10/19 04:02 WBC 11.2 H RBC 2.55 L Hgb 6.9 L Hct 22.3 L MCV 87.5 MCH 27.1 L MCHC 30.9 RDW 14.8 Plt Count 273 MPV 10.0 Neut % (Auto) 71.2 Lymph % (Auto) 20.3 [place] % (Auto) 5.6 Eos % (Auto) 2.2 Baso % (Auto) 0.3 Neut # (Auto) 8.0 H Lymph # (Auto) 2.3 [place] # (Auto) 0.6 Eos # (Auto) 0.3 Baso # (Auto) 0.0 Nucleated RBC % (a uto) 0 Nucleated RBCs # 0.0 Vitals: Last Vital Signs Temp 97.7 F 09/10/19 10:35 Pulse 150 H 09/10/19 10:35 Resp 20 H 09/10/19 10:35 BP 134/90 09/10/19 10:35 Pulse Ox 98 09/09/19 07:10 Discharge Plan Discharge Patient Disposition: Home, Self-Care Condition: Stable Prescriptions: New hydrocodone-acetaminophen 5-325 mg tablet 1 tab PO Q6H Qty: 25 RF: 0 ibuprofen 800 mg tablet 800 mg PO Q8H Qty: 30 RF: 0 docusate sodium 100 mg Capsule 100 mg PO BID Qty: 30 RF: 0 ferrous sulfate 325 mg (65 mg iron) Tablet,Delayed Release (Dr/Ec) 325 mg PO BIDWM Qty: 30 RF: 0 Continued (DME) blood pressure monitor [Blood Pressure Kit] Kit See Rx Instructions .ROUTE .MEDSUPPLY Qty: 1 RF: 0 sertraline [Zoloft] 50 mg tablet 50 mg PO DAILY RF: 0 prenat.vits,adelfo,[id number]-[id number] Tablet 1 tab PO DAILY RF: 0 Discontinued diphenhydramine HCl [Benadryl] 25 mg capsule 25 mg PO Q6H PRN (Reason: Allergy Symptoms) RF: 0 loratadine [Claritin] 10 mg tablet 10 mg PO DAILY RF: 0 Discharge Orders: Discharge Order (Routine); Ordered 09/11/19 Ordered By: Anel Elizabeth Referrals: Jose Roberto Hernandez DO [Physician] - 1 week Patient Instructions: Laparoscopic Tubal Ligation (DC), OB Abdominal Surgery - [facility], OB Discharge Report, OB Food/Drug Interaction Guide, OB Vaginal Deliveries - [facility] Activity Restrictions/Additional Instructions: Pelvic rest for 6 weeks, no heavy lifting for 6 weeks Follow-up with Dr. Hernandez for staple removal and blood pressure check in 1 week Follow-up with Dr. Hernandez for incision check in 2 weeks Follow-up with Dr. Maya for visit at 6 weeks Emergency room precautions reviewed Discharge Attestations MANAGER PROVIDER RELATIONS Time Spent in Discharge Care*: greater than 30 min Specific Discharge Activities: Specific discharge activities: educating patient, educating and/or supporting family/caregiver, documenting/other paperwork and evaluating patient/reviewing data Status at Discharge: Overall status at discharge: other (stable) Coding Level of Care Code Acute [employer] Director for Noeg Garima
--- NOTE | 2019-09-10 15:11 | PC.NURSE ---
Dr. Maya called and requests that colace 100mg po bid and iron 325mg po bid with meals also be called in to patient's pharmacy of choice. Medications called in to [facility] [place] per patient's requests.
[2019-09-10] MEDS: sodium chloride 0.9% 100 ML 25 ML IV (17:43)
[2019-09-11 03:30] VITALS: BP 108/72; PULSE 102; RESP 16; TEMP 36.5; O2SAT 95
[2019-09-11 05:32] LABS: Basophils % 0.3 %; Eosinophils # 0.4 10^3/uL (0.0-0.8); Eosinophils % 3.2 %; Hematocrit 23.9 % (37.0-47.0); Hemoglobin 7.4 g/dL (11.5-15.3); Lymphocytes # 2.5 10^3/uL (0.8-4.8); Lymphocytes % 22.3 %; Mean Corpuscular Volume 87.2 fL (81-99); Mean Platelet Volume 9.6 fL (7.4-10.4); Monocytes # 0.7 10^3/uL (0.2-0.9); Monocytes % 5.7 %; Neutrophils # 7.7 10^3/uL (1.8-7.7); Neutrophils % 67.7 %; Nucleated Red Blood Cells % 0 %; Platelet Count 305 10^3/cmm (130-400); Red Blood Count 2.74 10^6/uL (4.1-5.3); Red Cell Distribution Width 14.6 % (12.1-15.1); White Blood Count 11.3 10^3/uL (4.0-10.0)
[2019-09-11 07:30] VITALS: BP 118/80; PULSE 94; RESP 17; TEMP 36.8; O2SAT 97
[2019-09-11] MEDS: prenatal vitamin Capsule 1 CAP PO (08:49)
[2019-09-11] MEDS: docusate sodium 100 mg Capsule PO (08:49)
[2019-09-11] MEDS: ferrous sulfate EC 325 mg Tablet PO (08:49)
[2019-09-11 08:52] VITALS: PULSE 102; O2SAT 98
--- NOTE | 2019-09-11 09:40 | P.PN_ITS ---
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 Linn is a 29-year-old 4 para 4-0-0-4 status post vaginal delivery on 09/08/2019 as well as tubal ligation on 09/08/2017 which was complicated by bleeding requiring laparotomy and RSO. She is doing okay. Is a little tired and mildly tachycardic. She denies heavy vaginal bleeding, nausea, vomiting, fever, chills, shortness of breath and chest pain. She is tolerating regular diet although was not very hungry. She is burping but has not yet passed flatus. She is voiding freely. Vitals/I&O/Wt Last Vital Signs Temp 98.2 F 09/11/19 07:30 Pulse 102 H 09/11/19 08:52 Resp 17 09/11/19 07:30 BP 118/80 09/11/19 07:30 Pulse Ox 98 09/11/19 08:52 09/10/19 09/11/19 09/11/19 21:59 06:59 14:59 Intake Total Output Total Balance Physical Exam Narrative: EXAM NARRATIVE: Gen.: No acute distress Heart: S1-S2 heard, regular rate and rhythm Lungs: Clear to auscultation bilaterally Abdomen: Soft, fundus firm below umbilicus, tenderness around incision. Incision: Clean dry and intact with ramos, a lot of bruising noted especially near the umbilicus. Legs: No calf tenderness, +1 bilateral pitting pedal edema. Urinary Catheter Management^: Goodwin Latex Free: Cath Placed During This Visit: yes, but has since been removed by the nurse Reason for Continuing Indwelling Catheter: Decision to DC Catheter Urinary Catheter Date of Insertion: 09/08/19 Urinary Catheter Time of Insertion: 21:00 Date Urinary Catheter Removed: 09/09/19 Time Urinary Catheter Discontinued: 10:50 Data : 09/11/19 04:20 09/07/19 11:55 A&P Assessment and plan (1) Postoperative anemia due to acute blood loss: Status: Acute Code(s): D62 - Acute posthemorrhagic anemia (2) Preeclampsia: Status: Acute Code(s): O14.90 - Unspecified pre-eclampsia, unspecified trimester (3) Anxiety during in second trimester, antepartum: Status: Acute Code(s): O99.342 - Other mental disorders complicating , second trimester; F41.9 - Anxiety disorder, unspecified -Status post vaginal delivery and tubal ligation complicated by bleeding requiring RSO, postoperative day #2 -Patient is anemic with a hemoglobin of 6.9. - Orthostatic vitals performed were normal however patient is tachycardic. She has not yet passed flatus and I discussed that if tachycardia and Absence of flatus do not happen I would like to watch her for 1 more day especially given her complications. -I recommended transfusion of at least 1 unit of PRBCs preferably 2 given her anemia however patient is worried about complications and at this time declines. Discussed that if her tachycardia gets worse during the day then I would strongly recommend a transfusion and she states that she will reconsider at that time. -Encourage ambulation, p.o. pain medication and regular diet as tolerated -Incision care discussed with patient. If she continues to do well anticipate discharge later today. She understands that if she needs a blood transfusion or has any further symptomatic problem she will likely stay until tomorrow. Attestations Medical Necessity Statement*: Patient has symptomatic anemia and received a blood transfusion late in the evening and will need to stay until tomorrow for further management. 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
[2019-09-11 12:03] VITALS: BP 136/92; PULSE 104; RESP 16; TEMP 36.6; O2SAT 97
[2019-09-11 12:04] VITALS: BP 136/92; PULSE 104; RESP 16; TEMP 36.6; O2SAT 97
--- NOTE | 2019-09-11 12:06 | PC.NURSE ---
Car seat checked and is in date, parents state it is new, straps in appropriate position.
--- NOTE | 2019-09-12 11:17 | P.DS_ITS ---
Discharge Providers ENTERTAINMENT MANAGER Date of Admission: 09/07/19 10:58 Date of Discharge: 09/12/19 Attending Provider at Admission: Jose Roberto Hernandez DO Attending Provider at Discharge: Jose Roberto Hernandez DO Diagnoses at Discharge Discharge Diagnosis (1) Postoperative anemia due to acute blood loss: Status: Acute (2) Preeclampsia: Status: Acute (3) Anxiety during in second trimester, antepartum: Status: Acute Problem details: Impression: - present prior to ; was previosly managed with Zoloft; stopped in November due to running out. -Symptoms controlled on Zoloft. Continue - Denies any suicidal/homicidal ideation -Recommend follow-up with therapist/psychiatrist --- 4 weeks---> no changes; continue to follow --- 32 weeks--- no changes; continue to follow Hospital Course Hospital Course: Ms. Linn is a 29-year-old 4 para 3-0-0-3 at 39+ weeks gestation who underwent scheduled induction of labor for gestational hypertension at full-term. During the course of her induction she became preeclamptic and was placed on magnesium sulfate. She delivered on 09/07/2019 and underwent an uncomplicated vaginal delivery by Dr. Slaughter-please see his notes for labor course and labor and delivery. She was placed on magnesium sulfate for 24 hours and did well during this time. She underwent a tubal ligation and she desired permanent sterilization-this was performed by Dr. Hernandez on 09/08/2019 at 5 PM. This was complicated by adhesions and bleeding and she underwent a mini laparotomy with right salpingo-oophorectomy to control bleeding. During her postoperative course she had copious serosanguineous drainage and as a result required reopening and repeat surgery performed by Dr. Hernandez at which point bleeding was controlled. Please refer to both his operative report for details of surgery. On postoperative day 1 she did well and had no problems. Pain was controlled with p.o. pain medication. Incision was clean dry and intact. Vital signs were stable other than mild tachycardia. Hemoglobin dropped down from 9.3 after delivery to 8.4 after surgery. She continued to cesar well with her daughter and breast-feed without difficulty. Denies any depressive symptoms. On postoperative day 2 she continued to do well and pain was much better managed with p.o. hydrocodone and ibuprofen. She was ambulating well and denied nausea, vomiting, fever, chills. She denied any preeclamptic symptoms. Blood pressure remained largely within normal limits with occasional mild elevations. She denied any symptoms of anemia and orthostatic vitals were within normal limits. Hemoglobin on postoperative day 2 had dropped down to 6.9. Blood transfusion was offered however patient declined as she was worried about the possible complications. She continued to do well voiding freely. Later in the day she became more tachycardic with heart rate in the 120s to 130s and after counseling again patient accepted a blood transfusion and she only wanted 1 unit instead of 2 units and as a result was transfused 1 unit of PRBC the evening of 09/10/2019 which he tolerated without any problems. Following this vital signs improved and tachycardia improved with a heart rate of low 100s. She denied any other anemic symptoms. She did well for the rest of her hospitalization and was discharged home on postoperative day #3, day #4 in a stable condition. Plan is for her to follow-up in 1 week for staple removal and blood pressure check and then routine postoperative and visits. Emergency room precautions were reviewed with her in great detail and she understands that if there is any concern she needs to come in immediately. Physical Exam Urinary Catheter Management^: Goodwin Latex Free: Cath Placed During This Visit: yes, but has since been removed by the nurse Reason for Continuing Indwelling Catheter: Decision to DC Catheter Urinary Catheter Date of Insertion: 09/08/19 Urinary Catheter Time of Insertion: 21:00 Date Urinary Catheter Removed: 09/09/19 Time Urinary Catheter Discontinued: 10:50 Discharge Data Data Completed and Pending: Pending at discharge Category Date Time Status Pathology: Surgic al [PTH] Routine Pth 09/09/19 08:30 Received Vitals: Last Vital Signs Temp 98 F 09/11/19 12:04 Pulse 104 H 09/11/19 12:04 Resp 16 09/11/19 12:04 BP 136/92 09/11/19 12:04 Pulse Ox 97 09/11/19 12:04 Discharge Plan Discharge Patient Disposition: Home, Self-Care Condition: Stable Prescriptions: New hydrocodone-acetaminophen 5-325 mg tablet 1 tab PO Q6H Qty: 25 RF: 0 ibuprofen 800 mg tablet 800 mg PO Q8H Qty: 30 RF: 0 docusate sodium 100 mg Capsule 100 mg PO BID Qty: 30 RF: 0 ferrous sulfate 325 mg (65 mg iron) Tablet,Delayed Release (Dr/Ec) 325 mg PO BIDWM Qty: 30 RF: 0 Continued (DME) blood pressure monitor [Blood Pressure Kit] Kit See Rx Instructions .ROUTE .MEDSUPPLY Qty: 1 RF: 0 sertraline [Zoloft] 50 mg tablet 50 mg PO DAILY RF: 0 prenat.vits,adelfo,lim-nhix-jikqj Tablet 1 tab PO DAILY RF: 0 Discontinued diphenhydramine HCl [Benadryl] 25 mg capsule 25 mg PO Q6H PRN (Reason: Allergy Symptoms) RF: 0 loratadine [Claritin] 10 mg tablet 10 mg PO DAILY RF: 0 Discharge Orders: Discharge Order (Routine); Ordered 09/11/19 Ordered By: Anel Elizabeth Referrals: Jose Roberto Hernandez DO [Physician] - 1 week Anel Elizabeth MD [Family Provider] - 6 Weeks Patient Instructions: Laparoscopic Tubal Ligation (DC), OB Abdominal Surgery - [facility], OB Discharge Report, OB Food/Drug Interaction Guide, OB Vaginal Deliveries - [facility] Activity Restrictions/Additional Instructions: Pelvic rest for 6 weeks, no heavy lifting for 6 weeks Follow-up with Dr. Hernandez for staple removal and blood pressure check in 1 week Follow-up with Dr. Hernandez for incision check in 2 weeks Follow-up with Dr. 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
--- NOTE | 2019-09-12 12:08 | PM.OBGYPN ---
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 clear fluid) Monitor Mode: External Contraction Pattern: Regular Status: Category ll Vitals/I&O/Wt Last Vital Signs Temp 98 F 09/11/19 12:04 Pulse 104 H 09/11/19 12:04 Resp 16 09/11/19 12:04 BP 136/92 09/11/19 12:04 Pulse Ox 97 09/11/19 12:04 Physical Exam Urinary Catheter Management^: Goodwin Latex Free: Cath Placed During This Visit: yes, but has since been removed by the nurse Reason for Continuing Indwelling Catheter: Decision to DC Catheter Urinary Catheter Date of Insertion: 09/08/19 Urinary Catheter Time of Insertion: 21:00 Date Urinary Catheter Removed: 09/09/19 Time Urinary Catheter Discontinued: 10:50 Data : 09/11/19 04:20 09/07/19 11:55 Coding Level of Care Code 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
== END 2019-09-11 12:20 | disposition home or self-care (01) | DRG 768 ==
PROVIDERS: Obstetrics & Gynecology; Admitting Provider Obstetrics & Gynecology Female Pelvic Medicine and Reconstructive Surgery; Family Provider Obstetrics & Gynecology; Visit Provider Obstetrics & Gynecology Female Pelvic Medicine and Reconstructive Surgery
PROC: 0TL Urinary System, Occlusion (ICD-10-PCS; CPT 49000; 2019-09-08 16:00)
PROC: 0TL Urinary System, Occlusion (ICD-10-PCS; CPT 58720; 2019-09-08 16:00)
PROC: 0TL Urinary System, Occlusion (ICD-10-PCS; CPT 58700; 2019-09-08 16:00)
PROC: 0TL Urinary System, Occlusion (ICD-10-PCS; CPT 58605; 2019-09-08 16:00)
PROC: 0TL Urinary System, Occlusion (ICD-10-PCS; CPT 49000; principal; 2019-09-08 21:45)
DX: O14.13 Severe pre-eclampsia, third trimester (principal); Z37.0 Single live birth; D62 Acute posthemorrhagic anemia; Z30.2 Encounter for sterilization; Z3A.39 39 weeks gestation of pregnancy; F41.9 Anxiety disorder, unspecified; O99.820 Streptococcus B carrier state complicating pregnancy; O99.342 Other mental disorders complicating pregnancy, second trimester; O99.214 Obesity complicating childbirth; O99.02 Anemia complicating childbirth; Z79.82 Long term (current) use of aspirin; Z79.811 Long term (current) use of aromatase inhibitors
CPT/HCPCS: 12345; 36415; 36430; 51702; 59025; 59409; 80053; 81001; 82570; 83735; 84156; 84315; 84550; 85025; 85027; 85460; 86850; 86900; 86920; 88305; 90384; 96375; J0330; J0690; J1100; J1885; J2001; J2250; J2405; J2590; J2704; J2710; J2765; J2795; J3010; J3475; J3490; J7030; P9016

== ENCOUNTER → 2019-09-14 09:30 | Outpatient (BNVA) | payer MEDICAID, SELFPAY | PROVIDERS: Family Provider Obstetrics & Gynecology; Visit Provider Obstetrics & Gynecology Female Pelvic Medicine and Reconstructive Surgery | DX: O13.9 Gestational [pregnancy-induced] hypertension without significant proteinuria, unspecified trimester (principal); Z48.89 Encounter for other specified surgical aftercare | CPT/HCPCS: 80053; 81003; 84550; 85025 ==

== ENCOUNTER → 2020-11-30 13:49 | Outpatient (BNVA) | payer MEDICAID, SELFPAY | PROVIDERS: Family Provider Obstetrics & Gynecology; Visit Provider Registered Nurse Neonatal Intensive Care | DX: N39.0 Urinary tract infection, site not specified (principal); R52 Pain, unspecified | CPT/HCPCS: 81000 ==

== ENCOUNTER → 2023-01-02 09:28 | Outpatient (BNVA) | payer MEDICAID, SELFPAY | PROVIDERS: PCP Family Medicine Adult Medicine; Visit Provider Family Medicine Adult Medicine | DX: E66.01 Morbid (severe) obesity due to excess calories (principal); Z68.41 Body mass index [BMI] 40.0-44.9, adult; J30.9 Allergic rhinitis, unspecified | CPT/HCPCS: 80053; 84443 ==

== ENCOUNTER 2023-04-10 16:34 | Emergency (ER) | payer OTHER, MEDICAID, SELFPAY ==
[2023-04-10] VITALS (11 sets, daily range): BP systolic 123–172; BP diastolic 76–102; PULSE 94–162; RESP 16; O2SAT 94–99; BMI 38.4
--- NOTE | 2023-04-10 16:51 | XRR_ITS ---
PROCEDURE INFORMATION: Exam: XR Chest Exam date and time: 04/10/2023 5:16 PM Age: 32 years old Clinical indication: Cough and dyspnea; Patient HX: Dyspnea; Cough; Seizure; Tachycardia; No previous evidence of epilepsy TECHNIQUE: Imaging protocol: Radiologic exam of the chest. Views: 1 view. COMPARISON: No relevant prior studies available. FINDINGS: Lungs: Unremarkable. No consolidation. Pleural spaces: Unremarkable. No pleural effusion. No pneumothorax. Heart/Mediastinum: Unremarkable. No cardiomegaly. Bones/joints: Unremarkable. XR/XR chest 1V portable 04140 IMPRESSION: No acute findings.
--- NOTE | 2023-04-10 16:52 | ED_ITS ---
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 She was significantly altered afterward she was agitated and somewhat aggressive which some of the other staff that knows her is that is very unlike her. Has not previously had any seizure issues but has a known history of rapid heart rate in the past some 20 years ago she had a brief episode of rapid heart rate had a cardiology evaluation which was negative. She is not on any medications other than bupropion no recent medication changes. He denies excessive consumption of any stimulants. MD complaint: rapid heart beat and heart racing Onset (ago): minute(s) Severity: moderate Context: occurred during rest Associated symptoms: Deny anxiety, cough, diaphoresis, muscle cramps, nausea, paresthesias, pre-syncope, sense of impending doom, short of breath, syncope or vomiting Review of Systems Const: Denies: fever(s), chills or diaphoresis ENMT: Denies: throat pain, ear or mastoid pain, nasal discharge or nasal congestion Card: Reports: palpitations; Denies: chest pain, syncope or pre-syncope Resp: Denies: dyspnea, productive cough or non-productive cough GI: Denies: abdominal pain, nausea or vomiting : Denies: flank pain, difficulty voiding, dysuria, urinary frequency or urinary urgency Musc: Denies: muscle cramps Skin/Breast: Denies: rash or pruritus Psych: Denies: anxiety PFSH ED PFSH: Medical History Allergic rhinitis due to allergen Anemia Anxiety and depression Morbid obesity with BMI of 40.0-44.9, adult Nasal sinus congestion Pelvic pain Postoperative anemia due to acute blood loss Rh negative status during 03/14/2019: Blood type: O NEGATIVE. 03/14/2019 (13 wk): Received RhoGam due to vaginal bleeding 06/20/2019 (28 wk): Received RhoGAM Impression: Antibody screen today. -Received RhoGAM. Surgical History H/O oophorectomy (~09/08/19) H/O tubal ligation (~09/08/19) Right ovary No history of previous surgery Family History Father Hypertension Son Thyroid disease Family/Other Cancer MATERNAL GREAT AUNT ---- BREAST CANCER Patient denies medical problems Denies breast, cervical, uterine, ovarian, colon cancer, DVT/PE. 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 Physical Exam Const: GENERAL APPEARANCE: cooperative and comfortable ORIENTATION/CONSCIOUSNESS: Yes awake, Yes oriented to person, Yes oriented to place and Yes oriented to time HENMT: COMMON NORMALS: normocephalic, atraumatic and hearing grossly normal bilaterally HEAD & SCALP: normocephalic and atraumatic Resp: COMMON NORMALS: normal respiratory effort, No retractions, No use of accessory muscles and clear to auscultation bilaterally AUSCULTATION: clear to auscultation bilaterally Cardio: COMMON NORMALS: regular rate, regular rhythm and No murmurs present (Cardio) RATE: regular rate RHYTHM: regular rhythm GI: COMMON NORMALS: Soft to palpation and No hepatosplenomegaly present AUSCULTATION: Yes normoactive bowel sounds PALPATION: Yes Soft to palpation, No Tenderness to palpation present (GI), No Guarding due to palpation present (GI) and Yes No hepatosplenomegaly present Extremity: COMMON NORMALS: normal to inspection, capillary refill normal, no clubbing, cyanosis or edema, no calf tenderness and no pedal edema Neuro: SENSORIUM/ORIENTATION: Yes oriented to person, Yes oriented to place and Yes oriented to time Skin: COMMON NORMALS: no rashes or lesions noted GENERAL SKIN EXAM: no rashes or lesions noted Course Vital Signs: Vital signs: Vital Signs Pulse Rate 94 04/10/23 19:56 Respiratory Rate 16 04/10/23 19:56 Blood Pressure 130/87 04/10/23 19:56 Pulse Oximetry 94 04/10/23 19:56 Oxygen Delivery Me thod Room Air 04/10/23 19:21 MDM - Arrhythmia/Palpitations Medical Decision Making Care signed out to Dr. Osorio at change of shift. See final notes for diagnosis and disposition. Lab Data 04/10/23 16:45 04/10/23 16:45 Radiology Impressions Chest X-Ray 04/10/23 16:51 IMPRESSION: No acute findings. Head CT 04/10/23 16:55 IMPRESSION: No acute intracranial abnormality. Laboratory Results WBC 10.47 10^3/uL (3.29-11.43) 04/10/23 16:45 RBC 4.78 10^6/uL (3.85-5.65) 04/10/23 16:45 Hgb 13.00 g/dL (11.27-16.99) 04/10/23 16:45 Hct 39.9 % (36-47) 04/10/23 16:45 MCV 83.5 fl (85-98) L 04/10/23 16:45 MCH 27.2 pg (27-33) 04/10/23 16:45 MCHC 32.6 g/dL (30-55) 04/10/23 16:45 RDW 11.9 % (12.1-15.1) L 04/10/23 16:45 Plt Count 268 10^3/cmm (157-399) 04/10/23 16:45 MPV 10.8 fL (7.4-10.4) H 04/10/23 16:45 Lymph % (Auto) Not Reportable 04/10/23 16:45 [place] % (Auto) Not Reportable 04/10/23 16:45 Lymph # (Auto) Not Reportable 04/10/23 16:45 [place] # (Auto) Not Reportable 04/10/23 16:45 Total Counted 100 (0-100) 04/10/23 16:45 Atypical Lymphs % 9.0 % (0-5) H 04/10/23 16:45 Absolute Neutrophils 6.9 10^3/cmm (1.4-6.5) H 04/10/23 16:45 Segmented Neutrophils 66 % 04/10/23 16:45 Abs Segm Neuts (Man) 6.9 10/cmm (1.6-7.1) 04/10/23 16:45 Band Neutrophils 0.0 % 04/10/23 16:45 Abs Band Neuts (Man) 0.0 10^3/cmm (0.0-1.2) 04/10/23 16:45 Absolute Lymphocytes 3.2 10^3/cmm (1.2-3.4) 04/10/23 16:45 Lymphocytes (Manual) 22 % 04/10/23 16:45 Monocytes (Manual) 2.0 % 04/10/23 16:45 Absolute Monocytes 0.2 10^3/cmm (0.1-0.6) 04/10/23 16:45 Eosinophils (Manual) 1 % 04/10/23 16:45 Absolute Eosinophils 0.1 10^3/cmm (0.0-0.7) 04/10/23 16:45 Basophils (Manual) 0.0 % 04/10/23 16:45 Absolute Basophils 0.0 10^3/cmm (0.0-0.2) 04/10/23 16:45 Platelet Estimate Normal (Normal) 04/10/23 16:45 Sodium 134 mmol/L (136-145) L 04/10/23 16:45 Potassium 3.9 mmol/L (3.5-5.1) 04/10/23 16:45 Chloride 95 mmol/L (98-107) L 04/10/23 16:45 Carbon Dioxide 21 mmol/L (22-29) L 04/10/23 16:45 Anion Gap 21.9 (5-19) H 04/10/23 16:45 BUN 15 mg/dL (6-20) 04/10/23 16:45 Creatinine 0.9 mg/dL (0.5-0.9) 04/10/23 16:45 GFR Calculation 73.5 mL/min (90-130) L 04/10/23 16:45 Glucose 102 mg/dL (65-115) 04/10/23 16:45 Calculated Osmolality 279 mOsm/kg (285-295) L 04/10/23 16:45 Lactic Acid 7.2 mmol/L (0.5-2.2) H* 04/10/23 16:45 Lactic Acid (Sepsis) 1.3 mmol/L (0.5-2.2) 04/10/23 18:57 Calcium 9.8 mg/dL (8.5-10.5) 04/10/23 16:45 Magnesium 2.0 mg/dL (1.7-2.3) 04/10/23 16:45 Total Bilirubin 0.2 mg/dL (0.15-1.2) 04/10/23 16:45 AST 22 U/L (0-32) 04/10/23 16:45 ALT 29 U/L (0-33) 04/10/23 16:45 Alkaline Phosphatase 116 U/L (35-105) H 04/10/23 16:45 Creatine Kinase 63 U/L (26-192) 04/10/23 16:45 Total Protein 8.1 g/dL (6.6-8.7) 04/10/23 16:45 Albumin 4.7 g/dL (3.5-5.2) 04/10/23 16:45 Globulin 3.4 g/dL (1.3-4.6) 04/10/23 16:45 TSH 2.90 uIU/mL (0.27-4.20) 04/10/23 16:45 Urine Color Yellow (Yellow) 04/10/23 17:50 Urine Appearance Hazy (CLEAR) A 04/10/23 17:50 Urine pH 6 (5-7) 04/10/23 17:50 Ur Specific [place] 1.010 (1.005-1.030) 04/10/23 17:50 Urine Protein Neg (Negative) 04/10/23 17:50 Urine Glucose (UA) Norm (Normal) 04/10/23 17:50 Urine Ketones Negative (Negative) 04/10/23 17:50 Urine Blood Neg (Negative) 04/10/23 17:50 Urine Nitrate Negative (Negative) 04/10/23 17:50 Urine Bilirubin Neg (Negative) 04/10/23 17:50 Urine Urobilinogen Norm mg/dL (Negative) 04/10/23 17:50 Ur Leukocyte Esterase Negative (Negative) 04/10/23 17:50 Urine RBC 0-4 /hpf (0-2) H 04/10/23 17:50 Urine WBC 0-4 /hpf (0-5) H 04/10/23 17:50 Ur Squamous Epith Cells 5-10 /hpf (0-5) H 04/10/23 17:50 Amorphous Sediment Not Reportable 04/10/23 17:50 Urine Bacteria 1+ /hpf (NONE) H 04/10/23 17:50 Urine Opiates Screen Negative ng/mL (Negative) 04/10/23 17:50 Ur Barbiturates Screen Negative ng/mL (Negative) 04/10/23 17:50 Ur Phencyclidine Scrn Negative ng/mL (Negative) 04/10/23 17:50 Ur Amphetamines Screen Negative ng/mL (Negative) 04/10/23 17:50 U Benzodiazepines Scrn Negative ng/mL (Negative) 04/10/23 17:50 Urine Cocaine Screen Negative ng/mL (Negative) 04/10/23 17:50 U Marijuana (THC) Screen Negative ng/mL (Negative) 04/10/23 17:50 All radiology interpretation(s) finalized by discharge Discharge Plan Discharge Patient Disposition: Home Clinical Impression: Generalized seizure Condition: Stable Prescriptions: No Action bupropion HCl 450 mg tablet extended release 24 hr 450 mg PO DAILY Discharge Orders: Discharge ED (Routine); Ordered 04/10/23 Ordered By: Ethan Osorio Referrals: Gabbie Zhu MD [Physician] - 4-7 days Tye Bal MD [Primary Care Provider] - Patient Instructions: New-Onset Seizure in Adults (ED) Activity Restrictions/Additional Instructions: Return for any repeated episodes of seizure, passing out, mental status changes, etc. Return for any other concerning symptoms. Call neurology Thursday. Tell them you were seen here with seizure, and were asked to follow-up with them. 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 03/14/2019 (13 wk): Received RhoGam due to vaginal bleeding 06/20/2019 (28 wk): Received RhoGAM Impression: Antibody screen today. -Received RhoGAM. Surgical History H/O oophorectomy (~09/08/19) H/O tubal ligation (~09/08/19) Right ovary No history of previous surgery Family History Father Hypertension Son Thyroid disease Family/Other Cancer MATERNAL GREAT AUNT ---- BREAST CANCER Patient denies medical problems Denies breast, cervical, uterine, ovarian, colon cancer, DVT/PE. 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 Osorio at change of shift. See final notes for diagnosis and disposition. 32-year-old checked out to me by Dr. Last at shift change. This lady had a seizure during clinicals on the floor upstairs. She has recovered, and is now back to baseline. She did have a significant postictal period. Her heart rate was elevated, was improved after metoprolol. Blood pressure 130/87. Her lactic acid is 7.2, which is significant, and does tend towards seizure. Urine drug screen is negative. Urinalysis is negative. As she is back to baseline, and is only had 1 episode, will allow discharge to home. Neurology follow-up. Precautions given. She knows to return for any return of her symptoms. Lab Data 04/10/23 16:45 04/10/23 16:45 Radiology Impressions Chest X-Ray 04/10/23 16:51 IMPRESSION: No acute findings. Head CT 04/10/23 16:55 IMPRESSION: No acute intracranial abnormality. Laboratory Results WBC 10.47 10^3/uL (3.29-11.43) 04/10/23 16:45 RBC 4.78 10^6/uL (3.85-5.65) 04/10/23 16:45 Hgb 13.00 g/dL (11.27-16.99) 04/10/23 16:45 Hct 39.9 % (36-47) 04/10/23 16:45 MCV 83.5 fl (85-98) L 04/10/23 16:45 MCH 27.2 pg (27-33) 04/10/23 16:45 MCHC 32.6 g/dL (30-55) 04/10/23 16:45 RDW 11.9 % (12.1-15.1) L 04/10/23 16:45 Plt Count 268 10^3/cmm (157-399) 04/10/23 16:45 MPV 10.8 fL (7.4-10.4) H 04/10/23 16:45 Lymph % (Auto) Not Reportable 04/10/23 16:45 Bladen % (Auto) Not Reportable 04/10/23 16:45 Lymph # (Auto) Not Reportable 04/10/23 16:45 [place] # (Auto) Not Reportable 04/10/23 16:45 Total Counted 100 (0-100) 04/10/23 16:45 Atypical Lymphs % 9.0 % (0-5) H 04/10/23 16:45 Absolute Neutrophils 6.9 10^3/cmm (1.4-6.5) H 04/10/23 16:45 Segmented Neutrophils 66 % 04/10/23 16:45 Abs Segm Neuts (Man) 6.9 10/cmm (1.6-7.1) 04/10/23 16:45 Band Neutrophils 0.0 % 04/10/23 16:45 Abs Band Neuts (Man) 0.0 10^3/cmm (0.0-1.2) 04/10/23 16:45 Absolute Lymphocytes 3.2 10^3/cmm (1.2-3.4) 04/10/23 16:45 Lymphocytes (Manual) 22 % 04/10/23 16:45 Monocytes (Manual) 2.0 % 04/10/23 16:45 Absolute Monocytes 0.2 10^3/cmm (0.1-0.6) 04/10/23 16:45 Eosinophils (Manual) 1 % 04/10/23 16:45 Absolute Eosinophils 0.1 10^3/cmm (0.0-0.7) 04/10/23 16:45 Basophils (Manual) 0.0 % 04/10/23 16:45 Absolute Basophils 0.0 10^3/cmm (0.0-0.2) 04/10/23 16:45 Platelet Estimate Normal (Normal) 04/10/23 16:45 Sodium 134 mmol/L (136-145) L 04/10/23 16:45 Potassium 3.9 mmol/L (3.5-5.1) 04/10/23 16:45 Chloride 95 mmol/L (98-107) L 04/10/23 16:45 Carbon Dioxide 21 mmol/L (22-29) L 04/10/23 16:45 Anion Gap 21.9 (5-19) H 04/10/23 16:45 BUN 15 mg/dL (6-20) 04/10/23 16:45 Creatinine 0.9 mg/dL (0.5-0.9) 04/10/23 16:45 GFR Calculation 73.5 mL/min (90-130) L 04/10/23 16:45 Glucose 102 mg/dL (65-115) 04/10/23 16:45 Calculated Osmolality 279 mOsm/kg (285-295) L 04/10/23 16:45 Lactic Acid 7.2 mmol/L (0.5-2.2) H* 04/10/23 16:45 Lactic Acid (Sepsis) 1.3 mmol/L (0.5-2.2) 04/10/23 18:57 Calcium 9.8 mg/dL (8.5-10.5) 04/10/23 16:45 Magnesium 2.0 mg/dL (1.7-2.3) 04/10/23 16:45 Total Bilirubin 0.2 mg/dL (0.15-1.2) 04/10/23 16:45 AST 22 U/L (0-32) 04/10/23 16:45 ALT 29 U/L (0-33) 04/10/23 16:45 Alkaline Phosphatase 116 U/L (35-105) H 04/10/23 16:45 Creatine Kinase 63 U/L (26-192) 04/10/23 16:45 Total Protein 8.1 g/dL (6.6-8.7) 04/10/23 16:45 Albumin 4.7 g/dL (3.5-5.2) 04/10/23 16:45 Globulin 3.4 g/dL (1.3-4.6) 04/10/23 16:45 TSH 2.90 uIU/mL (0.27-4.20) 04/10/23 16:45 Urine Color Yellow (Yellow) 04/10/23 17:50 Urine Appearance Hazy (CLEAR) A 04/10/23 17:50 Urine pH 6 (5-7) 04/10/23 17:50 Ur Specific [place] 1.010 (1.005-1.030) 04/10/23 17:50 Urine Protein Neg (Negative) 04/10/23 17:50 Urine Glucose (UA) Norm (Normal) 04/10/23 17:50 Urine Ketones Negative (Negative) 04/10/23 17:50 Urine Blood Neg (Negative) 04/10/23 17:50 Urine Nitrate Negative (Negative) 04/10/23 17:50 Urine Bilirubin Neg (Negative) 04/10/23 17:50 Urine Urobilinogen Norm mg/dL (Negative) 04/10/23 17:50 Ur Leukocyte Esterase Negative (Negative) 04/10/23 17:50 Urine RBC 0-4 /hpf (0-2) H 04/10/23 17:50 Urine WBC 0-4 /hpf (0-5) H 04/10/23 17:50 Ur Squamous Epith Cells 5-10 /hpf (0-5) H 04/10/23 17:50 Amorphous Sediment Not Reportable 04/10/23 17:50 Urine Bacteria 1+ /hpf (NONE) H 04/10/23 17:50 Urine Opiates Screen Negative ng/mL (Negative) 04/10/23 17:50 Ur Barbiturates Screen Negative ng/mL (Negative) 04/10/23 17:50 Ur Phencyclidine Scrn Negative ng/mL (Negative) 04/10/23 17:50 Ur Amphetamines Screen Negative ng/mL (Negative) 04/10/23 17:50 U Benzodiazepines Scrn Negative ng/mL (Negative) 04/10/23 17:50 Urine Cocaine Screen Negative ng/mL (Negative) 04/10/23 17:50 U Marijuana (THC) Screen Negative ng/mL (Negative) 04/10/23 17:50 Discharge Plan Discharge Patient Disposition: Home Clinical Impression: Generalized seizure Condition: Stable Prescriptions: No Action bupropion HCl 450 mg tablet extended release 24 hr 450 mg PO DAILY Discharge Orders: Discharge ED (Routine); Ordered 04/10/23 Ordered By: Ethan Osorio Referrals: Gabbie Zhu MD [Physician] - 4-7 days Tye Bal MD [Primary Care Provider] - Patient Instructions: New-Onset Seizure in Adults (ED) Activity Restrictions/Additional Instructions: Return for any repeated episodes of seizure, passing out, mental status changes, etc. Return for any other concerning symptoms. Call neurology Thursday. Tell them you were seen here with seizure, and were asked to follow-up with them. 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
--- NOTE | 2023-04-10 16:55 | CTR_ITS ---
PROCEDURE INFORMATION: Exam: CT Head Without Contrast Exam date and time: 04/10/2023 5:37 PM Age: 32 years old Clinical indication: Other: Seizure; Additional info: New onset a-fib TECHNIQUE: Imaging protocol: Computed tomography of the head without contrast. Radiation optimization: All CT scans at this facility use at least one of these dose optimization techniques: automated exposure control; mA and/or kV adjustment per patient size (includes targeted exams where dose is matched to clinical indication); or iterative reconstruction. REPORTING DATA: Count of CT and Cardiac NM exams in prior 12 months: This patient has received 0 known CTs and 0 known cardiac nuclear medicine studies in the 12 months prior to the current study. COMPARISON: No relevant prior studies available. RADIATION DOSE METRICS: Total DLP (mGy-cm): 1038.28 FINDINGS: Brain: Normal. No hemorrhage. Unremarkable white matter. No mass effect. Cerebral ventricles: No ventriculomegaly. Paranasal sinuses: Visualized sinuses are unremarkable. No fluid levels. Mastoid air cells: Visualized mastoid air cells are well aerated. Bones/joints: Unremarkable. No acute fracture. Soft tissues: Unremarkable. CT/CT head wo con* [id number] IMPRESSION: No acute intracranial abnormality.
[2023-04-10 16:57] LABS: Hematocrit 39.9 % (36-47); Mean Corpuscular HGB Conc 32.6 g/dL (30-55); Mean Corpuscular Hemoglobin 27.2 pg (27-33); Mean Corpuscular Volume 83.5 fl (85-98); Mean Platelet Volume 10.8 fL (7.4-10.4); Platelet Count 268 10^3/cmm (157-399); Red Blood Count 4.78 10^6/uL (3.85-5.65); Red Cell Distribution Width 11.9 % (12.1-15.1); White Blood Count 10.47 10^3/uL (3.29-11.43)
[2023-04-10] MEDS: dilTIAZem 5 mg/mL SDV 5 mL 20 MG IVP (16:57)
[2023-04-10] MEDS: dilTIAZem 100 MG in sodium chloride 0.9% (add-van) 100 ML IV (17:12)
[2023-04-10 17:14] LABS: Alanine Aminotransferase 29 U/L (0-33); Albumin Level 4.7 g/dL (3.5-5.2); Alkaline Phosphatase 116 U/L (35-105); Anion Gap 21.9 (5-19); Aspartate Amino Transferase 22 U/L (0-32); Blood Urea Nitrogen 15 mg/dL (6-20); Calcium 9.8 mg/dL (8.5-10.5); Carbon Dioxide 21 mmol/L (22-29); Chloride 95 mmol/L (98-107); Globulin 3.4 g/dL (1.3-4.6); Glomerular Filtration Rate 73.5 mL/min (90-130); Glucose 102 mg/dL (65-115); Osmolality Calculated 279 mOsm/kg (285-295); Potassium 3.9 mmol/L (3.5-5.1); Sodium 134 mmol/L (136-145); Total Bilirubin 0.2 mg/dL (0.15-1.2); Total Protein 8.1 g/dL (6.6-8.7)
[2023-04-10 17:24] LABS: Lactic Sepsis W/Reflex 7.2 mmol/L (0.5-2.2)
--- NOTE | 2023-04-10 17:40 | ECG_ITS ---
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 Measurements Intervals [place] Rate: 162 P: 43 [place]: 112 QRS: 35 QRSD: 84 T: 101 QT: 259 QTc: 426 Interpretive Statements SUPRAVENTRICULAR TACHYCARDIA ST DEVIATION AND MODERATE T-WAVE ABNORMALITY, CONSIDER LATERAL ISCHEMIA [-0.1+ mV T-WAVE IN I/aVL/V5/V6] No previous ECG available for comparison Electronically Signed On 04-12-2023 22:56:57 CDT by Usama Josue M.D. [id number]
[2023-04-10 18:04] LABS: Absolute Eosinophils 0.1 10^3/cmm (0.0-0.7); Absolute Neutrophil 6.9 10^3/cmm (1.4-6.5); Absolute Segmented Neutrophil 6.9 10/cmm (1.6-7.1); Eosinophils 1 %; Lymphocytes 22 %; Lymphocytes Absolute 3.2 10^3/cmm (1.2-3.4); Monocytes Absolute 0.2 10^3/cmm (0.1-0.6); Platelet Estimate Normal (Normal); Segmented Neutrophils 66 %; Slide Review Slide Review Perform; Total Cells Counted 100 (0-100)
[2023-04-10] MEDS: sodium chloride 0.9% 1,000 ML 999 ML IV ×2 (18:05→18:27)
[2023-04-10 18:19] LABS: Amphetamines Screen Urine Negative (Negative); Barbiturates Screen Urine Negative (Negative); Benzodiazepines Screen Urine Negative (Negative); Cocaine Screen Urine Negative (Negative); Opiate Screen Urine Negative (Negative); PCP Screen Urine Negative (Negative); THC Screen Urine Negative (Negative)
[2023-04-10 18:29] LABS: Add Urine Microscopic? YES; Bilirubin Urine Neg (Negative); Blood Urine Neg (Negative); Glucose Urine UA Norm (Normal); Ketones Urine Negative (Negative); Leukocyte Esterase Urine Negative (Negative); Nitrate Urine Negative (Negative); Protein Urine Neg (Negative); Urine Appearance Hazy (CLEAR); Urine Color Yellow (Yellow); Urobilinogen Urine Norm (Negative); pH Urine 6 (5-7)
[2023-04-10 18:30] LABS: Bacteria Urine 1+ /hpf; RBC Urine 0-4 /hpf (0-2); WBC Urine 0-4 /hpf (0-5)
[2023-04-10 18:45] LABS: Reflex Lactate Order REFLEX LACTIC ORDERD
--- NOTE | 2023-04-10 18:52 | PC.NURSE ---
Report taken from FRANKIE Auguste at this time.
[2023-04-10] MEDS: metoprolol tartrate 1 mg/1 mL SDV 5 mL 5 MG IVP (19:09)
[2023-04-10 19:10] LABS: Creatine Phosphokinase 63 U/L (26-192)
[2023-04-10 19:18] LABS: Lactic Acid level (Lactate) 1.3 mmol/L (0.5-2.2)
--- NOTE | 2023-04-10 19:19 | PC.NURSE ---
Cardizem drip stopped per Dr Osorio.
== END 2023-04-10 20:02 | disposition home or self-care (01) ==
PROVIDERS: Family Medicine; Emergency Provider Emergency Medicine; PCP Family Medicine Adult Medicine
DX: G40.409 Other generalized epilepsy and epileptic syndromes, not intractable, without status epilepticus (principal)
CPT/HCPCS: 36415; 70450; 71045; 80053; 80306; 81001; 82550; 83605; 83735; 84443; 85007; 85025; 93005; 96365; 96366; 96375; 99285; J3490; J7030

== ENCOUNTER → 2023-10-01 11:52 | Outpatient (BNVA) | payer OTHER, MEDICAID, SELFPAY | PROVIDERS: PCP Family Medicine Adult Medicine; Visit Provider Nurse Practitioner Women's Health | DX: L65.9 Nonscarring hair loss, unspecified (principal); E66.9 Obesity, unspecified; L68.0 Hirsutism; Z13.1 Encounter for screening for diabetes mellitus | CPT/HCPCS: 82306; 82607; 82746; 82951; 83036; 84402; 84439; 84443; 85025 ==